=== PATIENT | female | born 1950 | race Caucasian/White ===

== ENCOUNTER 2021-07-07 06:28 | Observation (INO) ==
--- NOTE | 2021-07-03 15:36 | Anesthesiology Consultation ---
Date of Service July 03, 2021 Assessment & Plan (1) Encounter for pre-operative examination: Chart Review Chart Review: Acceptable Risk for Surgery (pending preop Covid testing and DOS labs ) and Patient NOT seen in Pre Admission Testing -No preop labs done- will order CBC with diff, PRP and coags stat AM of surgery Per nursing assessment 07/03/2021, patient denies any recent travel. No known Covid infection in the past 90 days. Patient is fully vaccinated for Covid. Pt did feel ill on 06/18/21- took home Covid test- was negative for Covid. No known Covid positive exposures or current Covid related symptoms. Preop Covid testing 07/03/21= results pending History Surgery Operation Date: 07/07/21 14:20 Proposed Procedures p Right Total Knee Arthroplasty - Jones Ventura DO Height/Weight Height: 5 ft 2 in Weight: 103.419 kg Allergies Allergy/AdvReac Type Severity Reaction Status Date / Time Penicillins Allergy Mild Swelling Verified 07/03/21 10:19 of Lip/Tongue/Throat silver sulfadiazine Allergy Mild Rash Verified 07/03/21 10:19 [From [facility]] Medications Home Medications Medication Instructions Recorded Confirmed Last Taken acetaminophen 650 mg 4 tab PO QAM 08/24/18 07/03/21 Unknown tablet,extended release (Tylenol Arthritis Pain) albuterol sulfate 90 mcg/actuation 2 puff INHALATION Q6H PRN 08/24/18 07/03/21 Unknown aerosol inhaler atorvastatin 40 mg tablet 40 mg PO QPM 08/24/18 07/03/21 Unknown levothyroxine 125 mcg tablet 125 mcg PO QAM 08/24/18 07/03/21 Unknown 3-in-1 Commode #1 ea 12/09/20 04/25/21 Unknown Wheeled Walker #1 ea 12/09/20 04/25/21 Unknown celecoxib 200 mg capsule (Celebrex) 200 mg PO BID 01/08/21 07/03/21 Unknown clobetasol 0.025 % topical cream 1 applic TOPICAL BID PRN 01/08/21 07/03/21 Unknown diclofenac sodium 1 % topical gel 2 g TOPICAL QID PRN 01/08/21 07/03/21 Unknown duloxetine 60 mg capsule,delayed 60 mg PO QPM 01/08/21 07/03/21 Unknown release gabapentin 400 mg capsule 400 mg PO TID 01/08/21 07/03/21 Unknown oxybutynin chloride 5 mg 5 mg PO QAM 01/08/21 07/03/21 Unknown tablet,extended release 24 hr oxycodone 15 mg tablet,crush 15 mg PO Q12H 01/08/21 07/03/21 Unknown resistant,extended release 12 hr (OxyContin) oxycodone 5 mg tablet 5 mg PO Q8H PRN 01/08/21 07/03/21 Unknown ropinirole 1 mg tablet 1 mg PO HS 01/08/21 07/03/21 Unknown tramadol 50 mg tablet 100 mg PO Q6H PRN 01/08/21 07/03/21 Unknown acetaminophen 650 mg 650 - 1,300 mg PO QPM 07/03/21 07/03/21 Unknown tablet,extended release (Tylenol Arthritis Pain) duloxetine 30 mg capsule,delayed 30 mg PO QPM 07/03/21 07/03/21 Unknown release furosemide 40 mg tablet (Lasix) 80 mg PO QAM PRN 07/03/21 07/03/21 Unknown gabapentin 100 mg capsule 100 mg PO TID 07/03/21 07/03/21 Unknown Past Medical History Medical History Anxiety Depression Graves disease S/p radioactive iodine > currently on levothyroxine Hx of deep venous thrombosis RLE (~1.5 years ago), Eliquis x 3 months after event, no definitive etiology, no issues since Hyperlipidemia Kidney stones Hx Morbid obesity with BMI of 40.0-44.9, adult Neuropathy Restless leg syndrome Past Family History Family History Other No family history of adverse response to anesthesia Past Surgical History Surgical History Hx of colonoscopy Hx of lithotripsy Social History Smoking Status: Never smoker Do You Dip or Chew Tobacco: No Hx Alcohol Use: No Hx Substance Use: No substance use type: does not use Testing Electrocardiogram Date: 01/14/21 SB at 55bpm. Minimal voltage criteria for LVH, may be normal variant. Chest X-Ray Date: 01/14/21 FINDINGS: Lung volumes are normal. There is no pneumothorax or pleural effusion. There is mild cardiomegaly without evidence for pulmonary edema. There is a moderate sized hiatal hernia. There is no consolidation to suggest pneumonia. IMPRESSION: No acute cardiopulmonary findings. Mild cardiomegaly. Hiatal hernia.
--- NOTE | 2021-07-07 06:16 | History & Physical Report ---
Date of Service July 07, 2021 Assessment & Plan (1) Osteoarthritis of right knee: We will proceed with a right total knee arthroplasty. Postoperatively she will be started on Xarelto for DVT prophylaxis and kept overnight in the hospital for postop medical management. She will need to discuss postoperative home health or therapy with case management. History of Present Illness Chief Complaint: Advanced osteoarthritis of the right knee. Primary Care Provider: Jimbo Nicolas DO Christelle is a pleasant 70-year-old female who is been doing with chronic increasing right knee pain. X-rays and clinical examination have been diagnostic for advanced osteoarthritis of the right knee. After failing years of conservative treatment, she has elected proceed with a right total knee arthroplasty. Allergies Allergy/AdvReac Type Severity Reaction Status Date / Time Penicillins Allergy Mild Swelling Verified 07/03/21 10:19 of Lip/Tongue/Throat silver sulfadiazine Allergy Mild Rash Verified 07/03/21 10:19 [[facility]] Home Medications Medication Instructions Recorded Confirmed Type acetaminophen 650 mg 4 tab PO QAM 08/24/18 07/03/21 History tablet,extended release (Tylenol Arthritis Pain) albuterol sulfate 90 mcg/actuation 2 puff INHALATION Q6H PRN 08/24/18 07/03/21 History aerosol inhaler atorvastatin 40 mg tablet 40 mg PO QPM 08/24/18 07/03/21 History levothyroxine 125 mcg tablet 125 mcg PO QAM 08/24/18 07/03/21 History 3-in-1 Commode #1 ea 12/09/20 04/25/21 Rx Wheeled Walker #1 ea 12/09/20 04/25/21 Rx celecoxib 200 mg capsule (Celebrex) 200 mg PO BID 01/08/21 07/03/21 History clobetasol 0.025 % topical cream 1 applic TOPICAL BID PRN 01/08/21 07/03/21 History diclofenac sodium 1 % topical gel 2 g TOPICAL QID PRN 01/08/21 07/03/21 History duloxetine 60 mg capsule,delayed 60 mg PO QPM 01/08/21 07/03/21 History release gabapentin 400 mg capsule 400 mg PO TID 01/08/21 07/03/21 History oxybutynin chloride 5 mg 5 mg PO QAM 01/08/21 07/03/21 History tablet,extended release 24 hr oxycodone 15 mg tablet,crush 15 mg PO Q12H 01/08/21 07/03/21 History resistant,extended release 12 hr (OxyContin) oxycodone 5 mg tablet 5 mg PO Q8H PRN 01/08/21 07/03/21 History ropinirole 1 mg tablet 1 mg PO HS 01/08/21 07/03/21 History tramadol 50 mg tablet 100 mg PO Q6H PRN 01/08/21 07/03/21 History acetaminophen 650 mg 650 - 1,300 mg PO QPM 07/03/21 07/03/21 History tablet,extended release (Tylenol Arthritis Pain) duloxetine 30 mg capsule,delayed 30 mg PO QPM 07/03/21 07/03/21 History release furosemide 40 mg tablet (Lasix) 80 mg PO QAM PRN 07/03/21 07/03/21 History gabapentin 100 mg capsule 100 mg PO TID 07/03/21 07/03/21 History Past Med/Surg History Medical History Anxiety Depression Graves disease S/p radioactive iodine > currently on levothyroxine Hx of deep venous thrombosis RLE (~1.5 years ago), Eliquis x 3 months after event, no definitive etiology, no issues since Hyperlipidemia Kidney stones Hx Morbid obesity with BMI of 40.0-44.9, adult Neuropathy Restless leg syndrome Surgical History Hx of colonoscopy Hx of lithotripsy Family History Other No family history of adverse response to anesthesia Social History Smoking Status: Never smoker Second Hand Exposure: No; Hx Alcohol Use: No Hx Substance Use: No Preferred Language: Venezuelan Communication Ability: Effective Craft Recruiter Required: No Beliefs That Will Affect Care: None Current Living Situation: Spouse Feels Safe at Home: Yes Assistive Devices: Cane and Glasses Review of Systems All systems reviewed & are unremarkable except as noted in HPI & below. Physical Exam On physical examination of the right knee, she has a trace effusion. She has range of motion from 5 to 120 degrees. No instability. Tenderness palpation of the distal medial femoral condyle and over the medial joint line. Constitutional WD/WN, vitals as above Eyes PERRL, conjunctivae normal, anicteric sclerae ENMT external ear and nose normal, oropharynx normal Neck trachea midline, no thyromegaly Respiratory normal respiratory effort Cardiovascular RRR, no murmur, no edema Gastrointestinal (Abdomen) normal bowel sounds, soft, nontender, no hepatosplenomegaly Psychiatric A+Ox3, euthymic affect Results & Data Results & Data Laboratory Results . Diagnostic Findings X-rays of the right knee show advanced osteoarthritis with joint space narrowing, osteophyte formation, and [id number] articulation.. PG Care Time/CCT Total # of Minutes Spent Total Time Spent with Patient: Total time spent is greater than 50% in coordination of care (as documented) at patient's floor/unit and/or counseling patient: Coding Level of Care Code None Diagnoses Osteoarthritis of right knee M17.11
[~2021-07-07 06:28] MED LIST: ACETAMINOPHEN 500 MG TAB PO SCH; BUPIVACAINE 0.5 % 5 MG/1 ML PF 10ML VIAL ONE; FAMOTIDINE 20 MG TAB PO SCH; GABAPENTIN 300 MG CAP PO SCH; Ketorolac (*for OR use only*) 30 MG, dexAMETHasone 4 MG, KETAMINE HCL (**OR use only) 1... INFIL SCH; LR 500ML BOLUS, THEN 15ML/HR IV SCH; LR 60ML/HR IV SCH; ROPIVACAINE 0.5% 5 MG/ML 30 ML VIAL ONE; TRANEXAMIC ACID 1,000 MG **IV Intra-op IV SCH; TRANEXAMIC ACID 1,000 MG **IV Pre-op IV SCH; dexAMETHasone 4 MG TAB PO SCH
[2021-07-07] MEDS ORDERED: ceFAZolin 2,000 MG/15 ML IV PUSH IV ONE (06:59)
[2021-07-07] MEDS ORDERED: fentaNYL citrate 100 MCG/2 ML VIAL ONE (07:03)
[2021-07-07] MEDS ORDERED: LIDOCAINE 2% 2 ML VIAL/AMP(20MG/ML) INFIL ONE (07:03)
[2021-07-07] MEDS ORDERED: MIDAZOLAM HCL 1 MG/ML 2ML VIAL ONE (07:03)
[2021-07-07] MEDS ORDERED: PROPOFOL IV EMULSION 10 MG/ML 20 ML VIAL IV ONE (07:03)
[2021-07-07 07:19] LABS: Basophils # (auto) 0.01 K/uL (0-0.2); Basophils % (auto) 0.2 %; Eosinophils # (auto) 0.15 K/uL (0-0.5); Eosinophils % (auto) 2.7 %; Hematocrit (blood only) 40.3 % (37-47); Hemoglobin 13.1 g/dL (12.0-16.0); Lymphocytes # (auto) 1.88 K/uL (1.2-3.4); Lymphocytes % (auto) 34.3 %; Mean Corpuscular Hemoglobin 33.5 pg (25-34); Mean Corpuscular Volume 103.1 fL (80-100); Mean Platelet Volume 9.1 fL (7.4-10.4); Monocytes # (auto) 0.61 K/uL (0.11-0.59); Monocytes % (auto) 11.1 %; Neutrophils # (auto) 2.83 K/uL (1.4-6.5); Neutrophils % (auto) 51.7 %; Platelet Count 222 K/uL (130-400); RDW Coefficient of Variation 14.3 % (11.5-14.5); RDW Standard Deviation 53.4 fL (36.4-46.3); Red Blood Count 3.91 M/uL (4.2-5.4); White Blood Count 5.48 K/uL (4.8-10.8)
[2021-07-07 07:29] LABS: Partial Thromboplastin Time 26.2 Seconds (21.0-31.0); Prothrombin Time 10.8 Seconds (9.0-12.0)
[2021-07-07 07:30] LABS: Mean Corpuscular Hgb Conc 32.5 g/dL (32-36)
[2021-07-07 07:38] LABS: BUN Creatinine Ratio 30.4 (10-20); Calcium 8.8 mg/dl (8.5-10.1); Creatinine Clr Calc Pharmacy 85.5 ml/min; Est GFR (African American) 102.2 ml/min; Est GFR (Non-African American) 88.2 ml/min; Potassium 3.7 mmol/L (3.5-5.1)
[2021-07-07] MEDS ORDERED: ORTHO JOINT ANESTHETIC ONE (08:04)
[2021-07-07] MEDS ORDERED: HYDROmorphone INJ 1 MG/ML SYRINGE IV PRN (08:56)
[2021-07-07] MEDS ORDERED: ePHEDrine sulfate 50 MG/ML AMP IV PRN (08:56)
[2021-07-07] MEDS ORDERED: fentaNYL citrate 100 MCG/2 ML VIAL IV PRN (08:56)
[2021-07-07] MEDS ORDERED: ATROPINE SULFATE 0.1 MG/ML 10ML SYR IV PRN (08:56)
--- NOTE | 2021-07-07 09:44 | Operative Report ---
PG Post Operative Report Pre & Post Diagnosis Operation Date: 07/07/21 08:50 Pre-Op Diagnosis: Degenerative Joint Disease Right Knee Post-Op Diagnosis: Degenerative Joint Disease Right Knee I identified the patient and participated in the time-out.: Yes Procedure Operation Date: 07/07/21 08:50 Actual Procedures p Right Total Knee Arthroplasty(Right) - Jones Ventura DO Surgeon Jones Ventura DO Senior Developer Jones Shelton PAC Estimated Blood Loss 20 Findings Consistent with Post-Op Diagnosis Specimens Right femoral and tibial bone Complications none Disposition Disposition: Recovery Room Indications Christelle is a pleasant 70-year-old female has been doing with chronic worsening right knee pain. X-rays and clinical examination have been diagnostic for advanced osteoarthritis of the right knee. After failing years of conservative treatment, she elected proceed with a right total knee arthroplasty. Description of Procedure Implants used: I used a Kriss Persona total knee arthroplasty system with a size 7 standard PS femur, E tibia with a 30 mm stem extension, 28 oval patella, and a size 12 medial congruent polyethylene bearing. All components were cemented in place with Biomet cement. Christelle arrived [facility] for the above procedure. She was seen in the preoperative holding area and the operative extremity was identified and signed. She was given a preoperative antibiotic, TXA, a spinal anesthetic and an adductor nerve block. She was taken back to the operating room and laid on the table in supine position. She was given basic sedation. The operative knee was then prepped and draped in sterile fashion. A timeout was done, and the patient and the operative extremity was properly identified. A midline incision was made directly over the patella. Dissection was taken down to the extensor mechanism. A subvastus arthrotomy was used. The medial retinaculum was released and the fat pad was mostly excised. The knee was flexed and the ACL, PCL, and meniscus were removed. A drill was sent down the center of the femoral canal followed by an intramedullary violette. Off that violette a distal femoral cutting block was placed. 9 mm was resected off the distal femur at 5 of valgus. A posterior referencing AP sizing guide was then placed on the distal femur. The femur measured to be a size 7. 2 drill holes were placed in 3 of external rotation. A 4-in-1 cutting block was then impacted into place. Anterior, posterior, and chamfer cuts were then made. The proximal tibia was then exposed. An external tibial alignment guide was placed. A tibial cut guide was then anchored in place and the proximal tibia was then resected. The posterior aspect of the knee was then opened up and any additional meniscus fragments and osteophytes were removed. The tibia measured to be a size E. The tibial plate was then placed in the appropriate rotation and the tibia was drilled and punched. Trial components were then placed. I used a size 12 medial congruent polyethylene insert. The knee was brought through a full range of motion and felt to be stable. The peg holes for the femoral component were then drilled. The patella was then everted and 9 mm was resected off the posterior aspect of the patella. The patella measured to be a size 28 oval. 3 peg holes were then drilled. A trial patella was placed. The knee was once again brought through a full range of motion and felt to be stable. Trial components were then removed. The surrounding soft tissues were injected with 100 cc of an orthopedic pain control cocktail. All components were then cemented into place with Biomet cement. The final polyethylene insert was then snapped into place. Once cement was dry the tourniquet was deflated. Hemostasis was obtained. A dilute betadyne lavage was then done for 3 minutes. The joint was then irrigated with normal saline solution. The subvastus arthrotomy was then closed with #1 Vicryl suture. The skin was closed with 2-0 Vicryl, 3-0V lock suture, and ketty. A soft compressive dressing was placed. She was then transferred to a hospital bed and taken to the postanesthesia care unit in stable condition. She tolerated the procedure well. Jones Shelton PA-C, was present for the entire procedure. He was critical for patient positioning, prepping, draping, retraction exposure, wound closure and application of sterile dressing. I attest to the content of the Intraoperative Record and any orders documented therein. Any exceptions are noted below.
--- NOTE | 2021-07-07 10:34 | XRay Report ---
XR knee RT 1 or 2V routine CLINICAL HISTORY: Surgical Post Op. Status post knee replacement COMPARISON STUDY: No previous studies for comparison. TECHNIQUE: 2 right knee views FINDINGS: The patient is status post total knee replacement. The prosthetic components are in anatomi c alignment with no acute abnormality seen. Air is present within the soft tissues from the procedure . Skin ketty are seen anteriorly. IMPRESSION: 1. Status post total knee replacement. ACT 112: Negative or not required by law. Electronically signed by: Natanael Pedroza M.D. 07/07/2021 10:33 AM
--- NOTE | 2021-07-07 13:30 | Anesthesiology Progress Note ---
Date of Service July 07, 2021 Anesthesia Post Procedure Vital Signs Vital Signs: Temp Pulse Pulse Pulse Resp BP Pulse Ox 07/07/21 13:24 36.5 C 56 L 18 153/85 H 98 07/07/21 13:10 53 L 19 137/57 L 98 07/07/21 13:00 36.4 C L 52 L 14 131/66 94 07/07/21 12:50 61 22 142/60 H 96 07/07/21 12:40 54 L 18 128/76 93 07/07/21 12:30 59 L 18 140/64 97 07/07/21 12:20 71 17 155/68 H 98 07/07/21 12:10 65 18 141/59 H 97 07/07/21 12:00 63 17 147/62 H 93 07/07/21 11:50 58 L 17 136/67 96 07/07/21 11:40 57 L 19 137/78 96 07/07/21 11:30 60 16 141/67 H 100 07/07/21 11:20 61 21 141/64 H 97 07/07/21 11:10 59 L 18 146/62 H 96 07/07/21 11:00 66 17 143/69 H 98 07/07/21 10:50 66 18 130/60 96 07/07/21 10:40 65 20 136/64 98 07/07/21 10:30 72 19 136/71 94 07/07/21 10:20 75 16 139/66 97 07/07/21 10:11 36.0 C L 77 16 124/66 94 07/07/21 07:44 37 C 76 18 169/81 H 97 Pain Intensity Right Knee: Pain Intensity: 8 Transfer of Care Handoff Completed per policy Notes Mental Status: alert / awake / arousable and participated in evaluation Patient Amnestic to Procedure: Yes Nausea / Vomiting: adequately controlled Pain: adequately controlled Airway Patency, RR, SpO2: stable & adequate BP & HR: stable & adequate Hydration State: stable & adequate Anesthetic Complications: no major complications apparent
[2021-07-07] MEDS ORDERED: bisacodyL 10 MG SUPP PR PRN (15:47)
[2021-07-07] MEDS ORDERED: DICLOFENAC SOD 1% GEL 100 GM TUBE EXT PRN (15:47)
[2021-07-07] MEDS ORDERED: MAGNESIUM HYDROXIDE SUSP 30 ML UDC PO PRN (15:47)
[2021-07-07] MEDS ORDERED: ONDANSETRON INJ 2 MG/ML 2 ML VIAL IV PRN (15:47)
[2021-07-07] MEDS ORDERED: SODIUM CHLORIDE 0.9% 1000ML 1,000 ML IV SCH (15:47)
[2021-07-07] MEDS ORDERED: ALBUTEROL HFA 8 GM INHALER INH PRN (15:47)
[2021-07-07] MEDS ORDERED: METOCLOPRAMIDE HCL INJ 5 MG/ML 2 ML VIAL IV PRN (15:47)
[2021-07-07] MEDS ORDERED: NALOXONE HCL 0.4 MG/1 ML VIAL/CARP IV PRN (15:47)
[2021-07-07] MEDS ORDERED: HYDROmorphone INJ 0.5 MG/0.5 ML SYR IV PRN (15:47)
[2021-07-07] MEDS ORDERED: FUROSEMIDE 80 MG TAB PO PRN (15:47)
[2021-07-07] MEDS ORDERED: CLOBETASOL 0.025% TOP PRN (15:47)
[2021-07-07] MEDS: ceFAZolin 2000MG 2,000 MG/15 ML SYR IV SCH ×2 (17:35→23:57)
[2021-07-07] MEDS: KETOROLAC TROMETHAMINE 15 MG/ML VIAL IV SCH ×2 (17:35→23:56)
[2021-07-07] MEDS: GABAPENTIN 100 MG CAP PO SCH ×2 (17:36→21:35)
[2021-07-07] MEDS: ACETAMINOPHEN 500 MG TAB PO SCH ×2 (17:36→21:33)
[2021-07-07] MEDS: GABAPENTIN 400 MG CAP PO SCH ×2 (17:36→21:34)
[2021-07-07] MEDS: oxyCODONE HCL IR 5 MG TAB (IMMEDIATE RELEASE) PO PRN (20:13)
[2021-07-07] MEDS ORDERED: DULoxetine HCL 60 MG CAP PO SCH (21:00)
[2021-07-07] MEDS ORDERED: DULoxetine HCL 30 MG CAP PO SCH (21:00)
[2021-07-07] MEDS ORDERED: rOPINIRole HCL 1 MG TABLET PO SCH (21:00)
[2021-07-07] MEDS ORDERED: SENNA 8.6 MG TAB PO SCH (21:00)
[2021-07-07] MEDS ORDERED: ATORVASTATIN 40 MG TAB PO SCH (21:00)
[2021-07-07] MEDS: DOCUSATE SODIUM 100 MG CAP PO SCH (21:32)
[2021-07-08] MEDS: oxyCODONE HCL IR 5 MG TAB (IMMEDIATE RELEASE) PO PRN ×3 (05:17→15:17)
[2021-07-08] MEDS: KETOROLAC TROMETHAMINE 15 MG/ML VIAL IV SCH ×2 (05:17→13:34)
[2021-07-08] MEDS: ACETAMINOPHEN 500 MG TAB PO SCH ×2 (05:18→13:33)
[2021-07-08] MEDS ORDERED: LEVOTHYROXINE SODIUM 125 MCG TABLET PO SCH (06:30)
--- NOTE | 2021-07-08 06:57 | Orthopedic Progress Note ---
Date of Service July 08, 2021 Assessment & Plan (1) Status post right knee replacement: Overall she is doing very well. She denies any much pain in the right knee. She is on Xarelto for DVT prophylaxis due to a prior history of DVT. She will be seen by physical therapy today for ambulation and range of motion exercises. She can be discharged home later today. She has been complaining about some pain and instability of her left knee. She feels she needs a brace with her left knee. I advised her to first see how she does at home and if she has continued pain instability of her left knee then she can come by our office anytime for possible injection or knee brace. Otherwise, she will follow-up with orthopedics in 2 weeks. Meri Bourgeois was seen and examined at bedside this morning. Overall she is doing very well and happy with her progress. She denies any much pain in her right knee. She has been ambulating some with the nursing staff. She has no complaints. Review of Systems All systems reviewed & are unremarkable except as noted in HPI & below. Physical Exam On physical examination of her right knee, the dressing is clean and dry. Her leg is out full extension. She has active dorsiflexion plantarflexion of her right ankle. Results & Data Results & Data Laboratory Results . Diagnostic Findings . PG Care Time/CCT Total # of Minutes Spent Total Time Spent with Patient: Total time spent is greater than 50% in coordination of care (as documented) at patient's floor/unit and/or counseling patient: Coding Level of Care Code 23532 Post Operative Follow-Up Diagnoses Status post right knee replacement Z96.651
--- NOTE | 2021-07-08 06:59 | Discharge Summary ---
Date of Service July 08, 2021 Admission HPI (Per Admitting) Christelle is a pleasant 70-year-old female who is been doing with chronic increasing right knee pain. X-rays and clinical examination have been diagnostic for advanced osteoarthritis of the right knee. After failing years of conservative treatment, she has elected proceed with a right total knee arthroplasty. Admission Exam (Per Admitting) On physical examination of the right knee, she has a trace effusion. She has range of motion from 5 to 120 degrees. No instability. Tenderness palpation of the distal medial femoral condyle and over the medial joint line. Principal Diagnosis Same as "Discharge Diagnosis" noted below under Discharge Instructions. Discharge Exam On physical examination of her right knee, the dressing is clean and dry. Her leg is out full extension. She has active dorsiflexion plantarflexion of her right ankle. Discharge Data Procedures Performed Operation Date: 07/07/21 08:50 Actual Procedures p Right Total Knee Arthroplasty(Right) - Jones Ventura DO Ordered Studies 07/07/21 05:00 US - OR guided needle placemen Routine Hospital Course (1) Status post right knee replacement: On July 07, 2021 Christelle arrived at [facility] and underwent a right knee replacement without complication. She had a spinal anesthetic. Postoperatively she was started on Xarelto for DVT prophylaxis and transferred to the general orthopedic floors. Her hospital course was uneventful. On postop day #1 her vital signs were stable and her pain was well controlled. She was able to participate well with physical therapy doing ambulation and range of motion exercises. She was then discharged home. She will follow-up with orthopedics in 2 weeks. PG Care Time/CCT Total # of Minutes Spent Total Time Spent with Patient: Total time spent is greater than 50% in coordination of care (as documented) at patient's floor/unit and/or counseling patient: Discharge Plan Discharge Items Patient Disposition: Home - Home Health Services Reason For Visit: Degenerative Joint Disease Right Knee Discharge Diagnosis: Status post right knee replacement Activity: Per Instructions section Non-emergency contact: Surgeon Call non-emergency contact if: your wound has increased redness and your wound has increased drainage Follow-up/Referrals: Jimbo Nicolas DO [Primary Care Provider] - Diet: Regular Addtl Attending Provider Instructions: Activity and Therapy Recommendations: * If you are using [facility] then therapy will be provided at your home until they feel you have accomplished all of your goals. * If you are using [facility] then Physical Therapy will be provided until they feel you are ready to start Outpatient Physical Therapy. * If you are not using home therapy then Outpatient Physical Therapy should start about 3-5 days from your day of surgery. Therapy will last about 6-10 weeks * It is important not to put a pillow under your knee when you are relaxing or sleeping. It is just as important to make sure you are getting your knee perfectly straight as it is to regain your knee bend. * You were shown a series of exercises in the hospital. Do these exercises three times each day including the exercises you were shown in physical therapy. * Get up and walk several times each day. For the first four weeks, try not to stand or walk for more than one hour at a time. If you do stand or walk for more than one hour, you will not hurt anything, but your leg will likely swell. * As you feel comfortable, you may change from the walker or crutches to a cane and then to independent walking. Medications: * Narcotic You will likely be sent home from the hospital with a prescription for the narcotic pain medication that worked best throughout your stay. * Aspirin Most patients will be required to take Aspirin 81mg twice a day for 6 weeks after surgery. This is obtained [id number] and a prescription is not necessary. * Other medications may be prescribed for specific circumstances. If you have any questions, please call the office at . * Resume previous home medications unless otherwise instructed TEDs/Elastic Stockings: The white elastic stockings help limit swelling and prevent blood clots from forming in your legs.~ The more you wear them, the more they work. Wear them for six weeks. Dressing Care: The dressing can be changed after physical therapy on postop day #1. Daily dry dressing changes for a few days, especially if the incision is still draining some. If the incision is not draining then you may leave the ketty open to air. If there is a little bit of drainage or if the ketty are getting stuck on your clothing then cover the incision with a dry dressing. The ketty will be removed at your 2 week follow-up appointment. Showering: You may shower 5 days from the day of surgery as long as the incision is no longer draining. You may shower with the ketty exposed. Let soapy water run over the ketty and pat them dry. Do not scrub or soak the incision. Things To Watch For: * Drainage from the incision site that occurs more than one week after your surgery. * Increased redness at the incision site. * Fever above 102 degrees Fahrenheit. * Unusual chest pain or shortness of breath. * Call [facility] at with any of the above problems Follow-Up Visit: Follow-up with Dr. Ventura's PA (Jones Shelton) 2-3 weeks after your day of surgery. He will remove your ketty and answer any questions. If you have any additional questions or concerns, Dr Ventura is usually in the office at the same time and will be available An appointment was probably scheduled when you signed-up for surgery in the office. If you have any questions call Office Instructions: More detailed instructions as well as Frequently Asked Questions were provided in a folder by our office when you signed-up for surgery. Please review these instructions when you get home. If you have any further questions or concerns, please feel free to call the office at [phone] Pending Studies at Discharge: No Stand-Alone Forms: My [facility], Smoking Cessation Medications and DC Order Prescriptions: New Xarelto 10 mg Tablet 10 mg PO DAILY Qty: 10 RF: 0 Continued gabapentin 100 mg capsule 100 mg PO TID RF: 0 duloxetine 30 mg capsule,delayed release(DR/EC) 30 mg PO QPM RF: 0 furosemide [Lasix] 40 mg tablet 80 mg PO QAM PRN (Reason: Edema) RF: 0 (DME) 3-in-1 Commode Misc See Rx Instructions .MEDSUPPLY Qty: 1 RF: 0 (DME) Wheeled Walker Misc See Rx Instructions .MEDSUPPLY Qty: 1 RF: 0 atorvastatin 40 mg tablet 40 mg PO QPM RF: 0 acetaminophen [Tylenol Arthritis Pain] 650 mg Tablet Extended Release 4 tab PO QAM RF: 0 levothyroxine 125 mcg tablet 125 mcg PO QAM RF: 0 albuterol sulfate 90 mcg/actuation Hfa Aerosol Inhaler 2 puff INHALATION Q6H PRN (Reason: Shortness Of Breath Or Wheezing) RF: 0 celecoxib [Celebrex] 200 mg Capsule 200 mg PO BID RF: 0 ropinirole 1 mg Tablet 1 mg PO HS RF: 0 gabapentin 400 mg Capsule 400 mg PO TID RF: 0 tramadol 50 mg Tablet 100 mg PO Q6H PRN (Reason: Pain) RF: 0 oxybutynin chloride 5 mg Tablet Extended Release 24hr 5 mg PO QAM RF: 0 duloxetine 60 mg Capsule,Delayed Release(Dr/Ec) 60 mg PO QPM RF: 0 oxycodone [OxyContin] 15 mg Tablet,Oral Only,Ext.Rel.12 Hr 15 mg PO Q12H RF: 0 clobetasol 0.025 % Cream 1 applic TOPICAL BID PRN (Reason: Rash) RF: 0 diclofenac sodium 1 % Gel 2 g TOPICAL QID PRN (Reason: Pain) RF: 0 acetaminophen [Tylenol Arthritis Pain] 650 mg Tablet Extended Release 650 - 1,300 mg PO QPM RF: 0 Changed oxycodone 5 mg Tablet 5 mg PO Q4H PRN (Reason: Pain) Qty: 60 RF: 0 Discharge Orders: Discharge Order (Routine); Ordered 07/08/21 Ordered By: Jones Ventura Admission Data Admit Date/Time: 07/07/21 10:16 Attending Provider: Jones Ventura Admit Provider: Jones Ventura Primary Care Provider: Jimbo Nicolas
[2021-07-08] MEDS ORDERED: dexAMETHasone 4 MG TAB PO SCH (08:00)
[2021-07-08] MEDS: GABAPENTIN 100 MG CAP PO SCH ×2 (08:23→14:05)
[2021-07-08] MEDS: GABAPENTIN 400 MG CAP PO SCH ×2 (08:24→14:05)
[2021-07-08] MEDS: DOCUSATE SODIUM 100 MG CAP PO SCH (08:24)
[2021-07-08] MEDS ORDERED: RIVAROXABAN 10 MG TABLET PO SCH (09:00)
[2021-07-08] MEDS ORDERED: OXYBUTYNIN CHLORIDE XL 5 MG TABCR PO SCH (09:00)
[2021-07-08] MEDS ORDERED: MULTIVITAMIN TAB PO SCH (09:00)
--- NOTE | 2021-07-08 13:38 | Ultrasound Report ---
US venous doppler LE RT CLINICAL HISTORY: right calf pain COMPARISON: None available at the time of this dictation. TECHNIQUE: Right lower extremity real-time compression venous ultrasound with Color Doppler imaging. Utilizing real-time ultrasonic imaging multiple real time high-resolution ultrasonic images with comp ression and noncompression maneuvers of the deep venous system in addition to color doppler imaging w ere performed from the common femoral vein through the proximal calf veins. FINDINGS: Currently there is normal compressibility of the deep venous system from the common femoral vein thro ugh the proximal calf veins. No current evidence of acute thrombosis is identified. However, there is nonocclusive thrombus seen within the popliteal vein which has a chronic appearance . Small vessels are seen at this site. Impression: No definite evidence of acute deep venous thrombus. Findings characteristic of chronic DVT is seen in volving the popliteal vein. ACT 112: Negative or not required by law. Electronically signed by: Natanael Pedroza M.D. 07/08/2021 1:36 PM
== END 2021-07-08 16:24 | disposition home health service (06) ==
LOC: 3W 06:28 → ASU 06:28

== ENCOUNTER 2021-09-01 08:10 | Observation (INO) ==
--- NOTE | 2021-08-29 09:27 | Anesthesiology Consultation ---
Date of Service August 29, 2021 Assessment & Plan (1) Encounter for pre-operative examination: Chart Review Chart Review: Acceptable Risk for Surgery (pending surgeon/anesthesia evaluation DOS ) and Patient NOT seen in Pre Admission Testing -Discussed anemia (worsened from July 03/2022 but had recent TKA 07/07/21), chronic DVT findings on 07/08/21 right LE u/s (pt on Xarelto x 10 days post op from 07/07/21 right TKA)- surgery being done on left side, and Dr. Ely made aware that Dr Ventura will be evaluating pt's left ankle infection DOS and deciding if patient can proceed with left TKA or not DOS- will leave to surgeon's discretion. Pt can proceed as scheduled. Per nursing assessment 08/29/2021, patient denies any recent travel. Pt had presumed Covid infection Jun 2021 after exposure to grandson who was Covid positive. pt had mild upset stomach and loss of appetite- never tested at that time. Has had three negative Covid tests since Jun 2021. No known recent Covid positive exposures or current Covid related symptoms. Pt is fully vaccinated for Covid. Preop Covid testing 08/27/21= negative. Covid test will be 5 days old by DOS- will order David test DOS. Pt is also being admitted- David needed DOS- possible pt cohorting. Right TKA 07/07/21= Done under SAB at L3-4 with 2 attempts. No anesthesia issues noted per anesthesia record History Surgery Operation Date: 09/01/21 08:50 Proposed Procedures p Left Total Knee Arthroplasty - Jones Ventura, Height/Weight Height: 5 ft 3.5 in Weight: 104.326 kg Allergies Allergy/AdvReac Type Severity Reaction Status Date / Time Penicillins Allergy Mild Swelling Verified 08/29/21 07:42 of Lip/Tongue/Throat silver sulfadiazine Allergy Mild Rash Verified 08/29/21 07:42 [From Silvadene] Medications Home Medications Medication Instructions Recorded Confirmed Last Taken acetaminophen 650 mg 4 tab PO QAM 08/24/18 08/29/21 07/07/21 03:00 tablet,extended release (Tylenol Arthritis Pain) albuterol sulfate 90 mcg/actuation 2 puff INHALATION Q6H PRN 08/24/18 08/29/21 Unknown aerosol inhaler atorvastatin 40 mg tablet 40 mg PO QPM 08/24/18 08/29/21 07/06/21 22:00 levothyroxine 125 mcg tablet 125 mcg PO QAM 08/24/18 08/29/21 07/06/21 09:15 3-in-1 Commode #1 ea 12/09/20 08/29/21 Unknown Wheeled Walker #1 ea 12/09/20 08/29/21 Unknown celecoxib 200 mg capsule (Celebrex) 200 mg PO BID 01/08/21 08/29/21 07/01/21 clobetasol 0.025 % topical cream 1 applic TOPICAL BID PRN 01/08/21 08/29/21 Unknown diclofenac sodium 1 % topical gel 2 g TOPICAL QID PRN 01/08/21 08/29/21 Unknown duloxetine 60 mg capsule,delayed 60 mg PO QPM 01/08/21 08/29/21 07/06/21 22:00 release gabapentin 400 mg capsule 400 mg PO TID 01/08/21 08/29/21 07/07/21 03:00 oxybutynin chloride 5 mg 5 mg PO QAM 01/08/21 08/29/21 07/07/21 03:00 tablet,extended release 24 hr oxycodone 15 mg tablet,crush 15 mg PO Q12H 01/08/21 08/29/21 07/07/21 03:00 resistant,extended release 12 hr (OxyContin) ropinirole 1 mg tablet 1 mg PO HS 01/08/21 08/29/21 07/06/21 22:00 tramadol 50 mg tablet 100 mg PO Q6H PRN 01/08/21 08/29/21 07/06/21 23:55 acetaminophen 650 mg 650 - 1,300 mg PO QPM 07/03/21 08/29/21 07/06/21 22:00 tablet,extended release (Tylenol Arthritis Pain) duloxetine 30 mg capsule,delayed 30 mg PO QPM 07/03/21 08/29/21 07/06/21 22:00 release furosemide 40 mg tablet (Lasix) 80 mg PO QAM PRN 07/03/21 08/29/21 07/03/21 gabapentin 100 mg capsule 100 mg PO TID 07/03/21 08/29/21 07/07/21 03:00 oxycodone 5 mg tablet 5 mg PO Q4H PRN #60 tab 07/08/21 08/29/21 Unknown rivaroxaban 10 mg tablet (Xarelto) 10 mg PO DAILY #10 tab 07/08/21 08/29/21 Unknown aspirin 81 mg tablet,delayed 81 mg PO BID 08/29/21 08/29/21 Unknown release doxycycline hyclate 100 mg capsule 100 mg PO BID 08/29/21 08/29/21 Unknown mupirocin 2 % topical ointment 1 applic TOPICAL BID 08/29/21 08/29/21 Unknown Past Medical History Medical History Anxiety Depression Graves disease S/p radioactive iodine > currently on levothyroxine History of COVID-21 Jun 2021, very mild, didn't take actual test, had been exposed to grandson who had covid. Pt then had symptoms. No further issues Hx of bronchitis Inhaler was prescribed for this, no asthma or copd dx Hx of deep venous thrombosis RLE (~1.5 years ago), Eliquis x 3 months after event, no definitive etiology, no issues since Hyperlipidemia Kidney stones Hx Morbid obesity with BMI of 40.0-44.9, adult Neuropathy Restless leg syndrome Staphylococcus infection Present in left ankle > on doxycycline at present > per pt, Dr. Ventura is aware, will assess DOS to make sure ok to proceed with surgery on 09/01/21 Past Family History Family History Other No family history of adverse response to anesthesia Past Surgical History Surgical History History of total right knee replacement Hx of colonoscopy Hx of lithotripsy [place] teeth extracted Social History Smoking Status: Never smoker Do You Dip or Chew Tobacco: No Hx Alcohol Use: No Hx Substance Use: No substance use type: does not use Lab Results Anesthesia Preop Results Results Anesthesia Widget: WBC 5.32 K/uL (4.8-10.8) 08/27/21 Hgb 10.9 g/dL (12.0-16.0) L 08/27/21 Hct 34.7 % (37-47) L 08/27/21 Plt 358 K/uL (130-400) 08/27/21 Na 138 mmol/L (136-145) 08/27/21 K 3.9 mmol/L (3.5-5.1) 08/27/21 Cl 100 mmol/L (98-107) 08/27/21 CO2 34 mmol/L (21-32) H 08/27/21 BUN 14 mg/dl (6-23) 08/27/21 Creat 0.68 mg/dl (0.6-1.2) 08/27/21 Glucose Level 84 mg/dl (70-99(Fasting)) 08/27/21 PT 11.2 Seconds (9.0-12.0) 08/27/21 PTT 28.2 Seconds (21.0-31.0) 08/27/21 INR 1.1 (0.9-1.1) 08/27/21 Blood Type A Negative 08/27/21 Antibody Screen NEGATIVE 08/27/21 Testing Laboratory Results Anemia noted with preop labs (did have right TKA on 07/07/21) Electrocardiogram Date: 01/14/21 SB at 55bpm. Minimal voltage criteria for LVH, may be normal variant. Chest X-Ray Date: 01/14/21 FINDINGS: Lung volumes are normal. There is no pneumothorax or pleural effusion. There is mild cardiomegaly without evidence for pulmonary edema. There is a moderate sized hiatal hernia. There is no consolidation to suggest pneumonia. IMPRESSION: No acute cardiopulmonary findings. Mild cardiomegaly. Hiatal hernia. Other Testing Right LE Venous Doppler 07/08/21= No definite evidence of acute deep venous thrombus. Findings characteristic of chronic DVT is seen involving the popliteal vein.
[~2021-09-01 08:10] MED LIST changes: -LR 60ML/HR IV SCH; +ceFAZolin 2000MG 2,000 MG/15 ML SYR IV SCH
[2021-09-01] MEDS ORDERED: Nursing to Pharmacy Communication SCH (09:00)
[2021-09-01] MEDS ORDERED: ONDANSETRON INJ 2 MG/ML 2 ML VIAL IV PRN ×2 (10:13→15:22)
[2021-09-01] MEDS ORDERED: fentaNYL citrate 100 MCG/2 ML VIAL IV PRN (10:13)
[2021-09-01] MEDS ORDERED: ePHEDrine sulfate 50 MG/ML AMP IV PRN (10:13)
[2021-09-01] MEDS ORDERED: ATROPINE SULFATE 0.1 MG/ML 10ML SYR IV PRN (10:13)
[2021-09-01] MEDS ORDERED: fentaNYL citrate 100 MCG/2 ML VIAL ONE (10:16)
[2021-09-01] MEDS ORDERED: MIDAZOLAM HCL 1 MG/ML 2ML VIAL ONE (10:16)
[2021-09-01] MEDS ORDERED: PROPOFOL IV EMULSION 10 MG/ML 20 ML VIAL IV ONE ×4 (10:46→11:51)
--- NOTE | 2021-09-01 11:00 | History & Physical Bridge Note ---
Date of Service September 01, 2021 History & Physical Bridge Note I have examined the patient, reviewed the History & Physical and in the interval since the performance of the History & Physical I have noted the following changes of clinical significance: Christelle has very small ulcerations around her left ankle. These have been chronic. I do not see any gross signs of infection. She also has skin discoloration around her left ankle. This is also chronic. Skin quality around the left knee looks good. I discussed with her the possible increased risk of infection and she understands the risk and would still like to proceed.
[2021-09-01] MEDS ORDERED: ORTHO JOINT ANESTHETIC ONE (11:11)
--- NOTE | 2021-09-01 13:22 | Operative Report ---
PG Post Operative Report Pre & Post Diagnosis Operation Date: 09/01/21 10:40 Pre-Op Diagnosis: degenerative joint disease, left knee Post-Op Diagnosis: degenerative joint disease, left knee I identified the patient and participated in the time-out.: Yes Procedure Operation Date: 09/01/21 10:40 Actual Procedures p Left Total Knee Arthroplasty(Left) - Jones Ventura DO Surgeon Jones Ventura DO Client Portfolio Manager Jones Shelton PAC Estimated Blood Loss 20 Findings Consistent with Post-Op Diagnosis Specimens Left femoral and tibial bone Complications none Disposition Disposition: Recovery Room Indications Christelle is a pleasant 70-year-old female who is been doing chronic increasing left knee pain. X-rays and clinical examination are diagnostic for advanced arthritis of the left knee. After failing conservative treatment, she elected proceed with a left total knee arthroplasty. Description of Procedure Implants used: I used a Kriss Persona total knee arthroplasty system with a size 7 standard PS femur, D tibia with a 30 mm stem extension, 31 oval patella, and a size 10 CPS polyethylene bearing. All components were cemented in place with Biomet cement. Christelle arrived [facility] for the above procedure. She was seen in the preoperative holding area and the operative extremity was identified and signed. She was given a preoperative antibiotic, TXA, a spinal anesthetic and an adductor nerve block. She was taken back to the operating room and laid on the table in supine position. She was given basic sedation. The operative knee was then prepped and draped in sterile fashion. A timeout was done, and the patient and the operative extremity was properly identified. A midline incision was made directly over the patella. Dissection was taken down to the extensor mechanism. A subvastus arthrotomy was used. The medial retinaculum was released and the fat pad was mostly excised. The knee was flexed and the ACL, PCL, and meniscus were removed. A drill was sent down the center of the femoral canal followed by an intramedullary violette. Off that violette a distal femoral cutting block was placed. 9 mm was resected off the distal femur at 5 of valgus. A posterior referencing AP sizing guide was then placed on the distal femur. The femur measured to be a size 7. 2 drill holes were placed in 3 of external rotation. A 4-in-1 cutting block was then impacted into place. Anterior, posterior, and chamfer cuts were then made. The proximal tibia was then exposed. An external tibial alignment guide was placed. A tibial cut guide was then anchored in place and the proximal tibia was then resected. The posterior aspect of the knee was then opened up and any additional meniscus fragments and osteophytes were removed. The tibia measured to be a size D. The tibial plate was then placed in the appropriate rotation and the tibia was drilled and punched. Trial components were then placed. I used a size 10 CPS polyethylene insert. The knee was br ought through a full range of motion and felt to be stable. The peg holes for the femoral component were then drilled. The patella was then everted and 9 mm was resected off the posterior aspect of the patella. The patella measured to be a size 31 oval. 3 peg holes were then drilled. A trial patella was placed. The knee was once again brought through a full range of motion and felt to be stable. Trial components were then removed. The surrounding soft tissues were injected with 100 cc of an orthopedic pain control cocktail. All components were then cemented into place with Biomet cement. The final polyethylene insert was then snapped into place. Once cement was dry the tourniquet was deflated. Hemostasis was obtained. A dilute betadyne lavage was then done for 3 minutes. The joint was then irrigated with normal saline solution. The subvastus arthrotomy was then closed with #1 Vicryl suture. The skin was closed with 2-0 Vicryl, 3-0V lock suture, and ketty. A soft compressive dressing was placed. She was then transferred to a hospital bed and taken to the postanesthesia care unit in stable condition. She tolerated the procedure well. Jones Shelton PA-C, was present for the entire procedure. He was critical for patient positioning, prepping, draping, retraction exposure, wound closure and application of sterile dressing. I attest to the content of the Intraoperative Record and any orders documented therein. Any exceptions are noted below.
--- NOTE | 2021-09-01 13:53 | XRay Report ---
LEFT KNEE 2 VIEWS History: Left total knee arthroplasty. Degenerative arthritis. Postop. FINDINGS: The patient is status post a left total knee arthroplasty. The hardware is intact. No fract ure or dislocation. Skin ketty are in place. IMPRESSION: Left total knee arthroplasty. No evidence for hardware complication. ACT 112: Negative or not required by law. Electronically signed by: Ehsan Last M.D. 09/01/2021 1:52 PM
--- NOTE | 2021-09-01 15:06 | Anesthesiology Progress Note ---
Date of Service September 01, 2021 Anesthesia Post Procedure Vital Signs Vital Signs: Temp Pulse Pulse Resp BP BP Pulse Ox 09/01/21 14:55 97.5 F L 70 22 139/68 96 09/01/21 14:45 76 20 134/71 96 09/01/21 14:35 55 L 18 143/62 H 95 09/01/21 14:25 55 L 20 139/58 L 93 09/01/21 14:15 60 20 140/65 98 09/01/21 14:05 54 L 18 145/61 H 100 09/01/21 13:55 67 20 143/72 H 97 09/01/21 13:45 74 18 153/70 H 100 09/01/21 13:35 79 16 124/80 97 09/01/21 13:28 97.3 F L 81 18 127/75 96 09/01/21 08:49 98.4 F 76 20 160/61 H 97 Transfer of Care Handoff Completed per policy Notes Mental Status: alert / awake / arousable and participated in evaluation Patient Amnestic to Procedure: Yes Nausea / Vomiting: adequately controlled Pain: adequately controlled Airway Patency, RR, SpO2: stable & adequate BP & HR: stable & adequate Hydration State: stable & adequate Neuraxial Anesthesia: was administered and sensory block is resolving Anesthetic Complications: no major complications apparent and Pt Satisfied with anesthetic care
[2021-09-01] MEDS ORDERED: bisacodyL 10 MG SUPP PR PRN (15:22)
[2021-09-01] MEDS ORDERED: CLOBETASOL 0.025% TOP PRN (15:22)
[2021-09-01] MEDS ORDERED: FUROSEMIDE 80 MG TAB PO PRN (15:22)
[2021-09-01] MEDS ORDERED: METOCLOPRAMIDE HCL INJ 5 MG/ML 2 ML VIAL IV PRN (15:22)
[2021-09-01] MEDS ORDERED: NALOXONE HCL 0.4 MG/1 ML VIAL/CARP IV PRN (15:22)
[2021-09-01] MEDS ORDERED: HYDROmorphone INJ 0.5 MG/0.5 ML SYR IV PRN (15:22)
[2021-09-01] MEDS ORDERED: DICLOFENAC SOD 1% GEL 100 GM TUBE EXT PRN (15:22)
[2021-09-01] MEDS ORDERED: MAGNESIUM HYDROXIDE SUSP 30 ML UDC PO PRN (15:22)
[2021-09-01] MEDS ORDERED: ALBUTEROL HFA 8 GM INHALER INH PRN (15:22)
[2021-09-01] MEDS: SODIUM CHLORIDE 0.9% 1000ML 1,000 ML IV SCH (17:15)
[2021-09-01] MEDS: GABAPENTIN 400 MG CAP PO SCH ×2 (17:15→20:16)
[2021-09-01] MEDS: ACETAMINOPHEN 500 MG TAB PO SCH ×2 (17:16→21:42)
[2021-09-01] MEDS: GABAPENTIN 100 MG CAP PO SCH ×2 (17:17→20:16)
[2021-09-01] MEDS: KETOROLAC TROMETHAMINE 15 MG/ML VIAL IV SCH ×2 (17:21→23:23)
[2021-09-01] MEDS: oxyCODONE HCL IR 5 MG TAB (IMMEDIATE RELEASE) PO PRN (19:50)
[2021-09-01] MEDS: ceFAZolin 2000MG 2,000 MG/15 ML SYR IV SCH (19:51)
[2021-09-01] MEDS: DOXYCYCLINE HYCLATE 100 MG CAP PO SCH (20:15)
[2021-09-01] MEDS: MUPIROCIN 2% OINT 22 GM TUBE TOP SCH (20:15)
[2021-09-01] MEDS: DOCUSATE SODIUM 100 MG CAP PO SCH (20:15)
[2021-09-01] MEDS ORDERED: DULoxetine HCL 60 MG CAP PO SCH (21:00)
[2021-09-01] MEDS ORDERED: SENNA 8.6 MG TAB PO SCH (21:00)
[2021-09-01] MEDS ORDERED: rOPINIRole HCL 1 MG TABLET PO SCH (21:00)
[2021-09-01] MEDS ORDERED: ATORVASTATIN 40 MG TAB PO SCH (21:00)
[2021-09-01] MEDS ORDERED: DULoxetine HCL 30 MG CAP PO SCH (21:00)
[2021-09-02] MEDS: oxyCODONE HCL IR 5 MG TAB (IMMEDIATE RELEASE) PO PRN ×4 (00:14→14:45)
[2021-09-02] MEDS: ceFAZolin 2000MG 2,000 MG/15 ML SYR IV SCH (02:52)
[2021-09-02] MEDS: SODIUM CHLORIDE 0.9% 1000ML 1,000 ML IV SCH (03:02)
[2021-09-02] MEDS: ACETAMINOPHEN 500 MG TAB PO SCH ×2 (05:41→13:23)
[2021-09-02] MEDS: KETOROLAC TROMETHAMINE 15 MG/ML VIAL IV SCH ×2 (05:42→11:46)
[2021-09-02] MEDS ORDERED: LEVOTHYROXINE SODIUM 125 MCG TABLET PO SCH (06:30)
--- NOTE | 2021-09-02 06:46 | Orthopedic Progress Note ---
Date of Service September 02, 2021 Assessment & Plan (1) Status post left knee replacement: Overall she is doing fairly well. She is having much pain in the left knee. She will be seen by physical therapy today for ambulation and range of motion exercises. She is on Xarelto for DVT prophylaxis. She can be discharged home later today. She will follow-up with orthopedics in 2 weeks. Meri Bourgeois was seen and examined at bedside this morning. Overall she is doing fairly well. She is not having much pain in the left knee. She has been up and ambulating to the bathroom. She has no complaints. Review of Systems All systems reviewed & are unremarkable except as noted in HPI & below. Physical Exam On physical examination of the left knee, the dressing is clean and dry. She has active dorsiflexion plantarflexion of her left ankle. Results & Data Results & Data Laboratory Results . Diagnostic Findings Postoperative x-rays of the left knee show the prosthesis to be in anatomic alignment without any evidence of fracture, screws, or loosening. PG Care Time/CCT Total # of Minutes Spent Total Time Spent with Patient: Total time spent is greater than 50% in coordination of care (as documented) at patient's floor/unit and/or counseling patient: Coding Level of Care Code 79091 Post Operative Follow-Up Diagnoses Status post left knee replacement Z96.652
--- NOTE | 2021-09-02 06:47 | Discharge Summary ---
Date of Service September 02, 2021 Principal Diagnosis Same as "Discharge Diagnosis" noted below under Discharge Instructions. Discharge Exam On physical examination of the left knee, the dressing is clean and dry. She has active dorsiflexion plantarflexion of her left ankle. Discharge Data Procedures Performed Operation Date: 09/01/21 10:40 Actual Procedures p Left Total Knee Arthroplasty(Left) - Jones Ventura DO Ordered Studies 09/01/21 05:00 US - OR guided needle placemen Routine Hospital Course (1) Status post left knee replacement: On September 01, 2021 Christelle arrived at [facility] and underwent a left knee replaced without complication. Postoperatively she was started on Xarelto for DVT prophylaxis and transferred to the general orthopedic floors. Her hospital course was uneventful. On postop day #1, her vital signs were stable and her pain was well controlled. She was able to participate well with physical therapy doing ambulation and range of motion exercises. She was then discharged home. She will follow-up with orthopedics in 2 weeks. PG Care Time/CCT Total # of Minutes Spent Total Time Spent with Patient: Total time spent is greater than 50% in coordination of care (as documented) at patient's floor/unit and/or counseling patient: Discharge Plan Discharge Items Patient Disposition: Home - Home Health Services Reason For Visit: DJD Knee Left Discharge Diagnosis: Left knee replacement Activity: As commented below Non-emergency contact: Surgeon Call non-emergency contact if: your wound has increased redness and your wound has increased drainage Follow-up/Referrals: Jimbo Nicolas DO [Primary Care Provider] - Diet: Regular Addtl Attending Provider Instructions: Activity and Therapy Recommendations: * If you are using [facility] then therapy will be provided at your home until they feel you have accomplished all of your goals. * If you are using [facility] then Physical Therapy will be provided until they feel you are ready to start Outpatient Physical Therapy. * If you are not using home therapy then Outpatient Physical Therapy should start about 3-5 days from your day of surgery. Therapy will last about 6-10 weeks * It is important not to put a pillow under your knee when you are relaxing or sleeping. It is just as important to make sure you are getting your knee perfectly straight as it is to regain your knee bend. * You were shown a series of exercises in the hospital. Do these exercises three times each day including the exercises you were shown in physical therapy. * Get up and walk several times each day. For the first four weeks, try not to stand or walk for more than one hour at a time. If you do stand or walk for more than one hour, you will not hurt anything, but your leg will likely swell. * As you feel comfortable, you may change from the walker or crutches to a cane and then to independent walking. Medications: * Narcotic You will likely be sent home from the hospital with a prescription for the narcotic pain medication that worked best throughout your stay. * Aspirin Most patients will be required to take Aspirin 81mg twice a day for 6 weeks after surgery. This is obtained [id number] and a prescription is not necessary. * Other medications may be prescribed for specific circumstances. If you have any questions, please call the office at . * Resume previous home medications unless otherwise instructed TEDs/Elastic Stockings: The white elastic stockings help limit swelling and prevent blood clots from forming in your legs.~ The more you wear them, the more they work. Wear them for six weeks. Dressing Care: The dressing can be changed after physical therapy on postop day #1. Daily dry dressing changes for a few days, especially if the incision is still draining some. If the incision is not draining then you may leave the ketty open to air. If there is a little bit of drainage or if the ketty are getting stuck on your clothing then cover the incision with a dry dressing. The ketty will be removed at your 2 week follow-up appointment. Showering: You may shower 5 days from the day of surgery as long as the incision is no longer draining. You may shower with the ketty exposed. Let soapy water run over the ketty and pat them dry. Do not scrub or soak the incision. Things To Watch For: * Drainage from the incision site that occurs more than one week after your surgery. * Increased redness at the incision site. * Fever above 102 degrees Fahrenheit. * Unusual chest pain or shortness of breath. * Call [facility] at with any of the above problems Follow-Up Visit: Follow-up with Dr. Ventura's PA (Jones Shelton) 2-3 weeks after your day of surgery. He will remove your ketty and answer any questions. If you have any additional questions or concerns, Dr Ventura is usually in the office at the same time and will be available An appointment was probably scheduled when you signed-up for surgery in the office. If you have any questions call Office Instructions: More detailed instructions as well as Frequently Asked Questions were provided in a folder by our office when you signed-up for surgery. Please review these instructions when you get home. If you have any further questions or concerns, please feel free to call the office at [phone] Pending Studies at Discharge: No Stand-Alone Forms: My [facility] Medications and DC Order Prescriptions: New oxycodone-acetaminophen 5-325 mg tablet 1 tab PO Q6H PRN (Reason: pain) Qty: 30 RF: 0 Continued gabapentin 100 mg capsule 100 mg PO TID RF: 0 duloxetine 30 mg capsule,delayed release(DR/EC) 30 mg PO QPM RF: 0 furosemide [Lasix] 40 mg tablet 80 mg PO QAM PRN (Reason: Edema) RF: 0 (DME) 3-in-1 Commode Misc See Rx Instructions .MEDSUPPLY Qty: 1 RF: 0 (DME) Wheeled Walker Misc See Rx Instructions .MEDSUPPLY Qty: 1 RF: 0 atorvastatin 40 mg tablet 40 mg PO QPM RF: 0 acetaminophen [Tylenol Arthritis Pain] 650 mg Tablet Extended Release 4 tab PO QAM RF: 0 levothyroxine 125 mcg tablet 125 mcg PO QAM RF: 0 albuterol sulfate 90 mcg/actuation Hfa Aerosol Inhaler 2 puff INHALATION Q6H PRN (Reason: Shortness Of Breath Or Wheezing) RF: 0 celecoxib [Celebrex] 200 mg Capsule 200 mg PO BID RF: 0 ropinirole 1 mg Tablet 1 mg PO HS RF: 0 gabapentin 400 mg Capsule 400 mg PO TID RF: 0 tramadol 50 mg Tablet 100 mg PO Q6H PRN (Reason: Pain) RF: 0 oxybutynin chloride 5 mg Tablet Extended Release 24hr 5 mg PO QAM RF: 0 duloxetine 60 mg Capsule,Delayed Release(Dr/Ec) 60 mg PO QPM RF: 0 oxycodone [OxyContin] 15 mg Tablet,Oral Only,Ext.Rel.12 Hr 15 mg PO Q12H RF: 0 clobetasol 0.025 % Cream 1 applic TOPICAL BID PRN (Reason: Rash) RF: 0 diclofenac sodium 1 % Gel 2 g TOPICAL QID PRN (Reason: Pain) RF: 0 doxycycline hyclate 100 mg Capsule 100 mg PO BID RF: 0 aspirin [Aspir-81] 81 mg Tablet,Delayed Release (Dr/Ec) 81 mg PO BID RF: 0 mupirocin 2 % Ointment 1 applic TOPICAL BID RF: 0 acetaminophen [Tylenol Arthritis Pain] 650 mg Tablet Extended Release 650 - 1,300 mg PO QPM RF: 0 Xarelto 10 mg Tablet 10 mg PO DAILY Qty: 10 RF: 0 oxycodone 5 mg Tablet 5 mg PO Q4H PRN (Reason: Pain) Qty: 60 RF: 0 Discharge Orders: Discharge Order (Routine); Ordered 09/02/21 Ordered By: Jones Ventura Admission Data Admit Date/Time: 09/01/21 13:36 Attending Provider: Jones Ventura Admit Provider: Jones Ventura Primary Care Provider: Jimbo Nicolas
[2021-09-02] MEDS ORDERED: dexAMETHasone 4 MG TAB PO SCH (08:00)
[2021-09-02] MEDS ORDERED: MULTIVITAMIN TAB PO SCH (09:00)
[2021-09-02] MEDS ORDERED: RIVAROXABAN 10 MG TABLET PO SCH (09:00)
[2021-09-02] MEDS ORDERED: OXYBUTYNIN CHLORIDE XL 5 MG TABCR PO SCH (09:00)
[2021-09-02] MEDS: GABAPENTIN 400 MG CAP PO SCH ×2 (09:34→13:23)
[2021-09-02] MEDS: DOCUSATE SODIUM 100 MG CAP PO SCH (09:34)
[2021-09-02] MEDS: GABAPENTIN 100 MG CAP PO SCH ×2 (09:34→13:23)
[2021-09-02] MEDS: MUPIROCIN 2% OINT 22 GM TUBE TOP SCH (09:35)
[2021-09-02] MEDS: DOXYCYCLINE HYCLATE 100 MG CAP PO SCH (10:47)
== END 2021-09-02 17:00 | disposition home health service (06) ==
LOC: 3N 08:10 → ASU 08:10

== ENCOUNTER 2022-03-16 16:09 | Observation (INO) ==
[2022-03-16 17:21] LABS: Basophils # (auto) 0.03 K/uL (0-0.2); Basophils % (auto) 0.7 %; Eosinophils # (auto) 0.16 K/uL (0-0.50); Eosinophils % (auto) 3.7 %; Hematocrit (blood only) 38.2 % (34.1-44.9); Hemoglobin 12.5 g/dl (12.0-16.0); Immature Granulocytes # (auto) 0.01 K/uL (0.00-0.02); Immature Granulocytes % (auto) 0.2 %; Lymphocytes % (auto) 25.2 %; Mean Corpuscular Hemoglobin 32.3 pg (25.0-34.0); Mean Corpuscular Hgb Conc 32.7 g/dL (32.0-36.0); Mean Corpuscular Volume 98.7 fL (80.0-100.0); Mean Platelet Volume 8.8 fL (9.4-12.3); Monocytes # (auto) 0.45 K/uL (0.24-0.82); Monocytes % (auto) 10.3 %; Neutrophils # (auto) 2.61 K/uL (1.4-6.5); Neutrophils % (auto) 59.9 %; Platelet Count 260 K/uL (130-400); RDW Coefficient of Variation 13.4 % (11.5-14.5); Red Blood Count 3.87 M/uL (3.93-5.22); White Blood Count 4.36 K/ul (4.8-10.8)
[2022-03-16 17:33] LABS: INR 1.1 (0.9-1.1); Partial Thromboplastin Time 27.7 Seconds (21.0-31.0); Prothrombin Time 11.4 Seconds (9.0-12.0)
--- NOTE | 2022-03-16 17:33 | Emergency Department Note ---
Impression & Plan Closed fracture of left proximal tibia, Status post left knee replacement, Gross hematuria, Dilation of biliary tract, UTI (urinary tract infection) ED Provider Note NAME: NEDRA WOLFE AGE: 71 SEX: F : 1950 ARRIVES VIA: Ambulance INFORMANT: Patient, ED PROVIDER(S): Best Salinas MD Chief Complaint: Hematuria, leg pain HPI: Patient states that the hematuria began about 2 and half weeks ago. The pa tient states it is been intermittent. Patient denies any abdominal pain nausea or vomiting. The patient does admit to having some dysuria today. No low back pain. Nupore history of kidney stones. Patient denies any recent falls or trauma. The patient states that since she was seen in the emergency department for cellulitis the patient's had to refill her prescription at least 1 time. Patient states that she had persistent issues with the left lower extremity difficulty with walking and pain that she notes primarily to the left lower leg. The patient denies any falls or trauma increase in activity. The patient states that she has been primarily white lower extremity weightbearing with assistance as she feels extremely comfortable on her left leg. The patient has been taking Celebrex 200 mg twice daily oxycodone 5 mg 3 times daily as needed as well as her daily gabapentin 500 mg. Patient denies any chest pains or shortness of breath. Patient does have a prior history of right lower extremity DVT and was on Eliquis for 3 months thereafter. Patient is not on any current blood thinning medications with the exception of antiplatelet baby aspirin. ROS: See HPI for pertinent positives and negatives. A total of 10 systems were reviewed and otherwise negative. Past medical history: See below Surgical history: See below Social history: See below Physical Exam: GENERAL: NAD, wearing a mask, non-toxic. Wearing glasses. EYE EXAM: Normal conjunctiva. PERRL, no anisocoria and EOM's grossly intact w/o pain. NECK: Supple, no nuchal rigidity, no adenopathy, non-tender. No signs of meningismus. FROM of the neck with good chin to chest and neck extension. No stridor. LUNGS: Clear to auscultation. Normal chest wall mechanics. HEART: NSR, no MRG. ABDOMEN: Abdomen soft, non-tender, normo-active bowel sounds, no masses, no rebound or guarding. BACK: No CVA TTP. SKIN: No rashes and no bruising. UPPER EXTREMITIES: Upper extremities are grossly normal. LOWER EXTREMITIES: Mild bilateral nonpitting swelling, venous stasis changes, good DP pulse and no crepitus, pain noted to the left proximal anterior oneill as well as medial aspect of the left calf. NEURO EXAM: A&O x3, cranial nerves II-XII grossly intact, normal speech, moves all 4 extremities. Differential diagnoses: Renal colic, UTI, appendicitis, diverticulitis, mesenteric ischemia, aortic pathology, infections, inflammatory bowel disease, PUD, biliary pathology, as well as other pathologies. Course: Patient was seen and evaluated the bedside. Full history physical exam was performed. Imaging Studies: See Below Cardiac monitoring: An order was placed for continuous cardiac monitoring. The monitor shows a rate of 77 with sinus rhythm. MDM: Patient presents due to concern for hematuria and left leg pain. Patient did have a tibia x-ray and venous Doppler completed of the left lower extremity. Blood work was obtained along with CT of the abdomen pelvis. The patient's blood work shows mild leukopenia 4.3 with a normal H&H and platelet count the patient's kidney function is grossly unremarkable albeit with prerenal azotemia. Patient does take Lasix as a diuretic. X-ray does show that the patient has a tibial fracture. The patient may have an associated pyelitis. Recommended possible ERCP and/or GI follow-up. The patient did receive antibiotics. I did speak with Dr. Bull of orthopedics who recommended a knee immobilizer. Gi patient does have some ductal dilatation. armond the patient's ambulatory dysfunction pain and pyelitis will admit to inpatient service at this time. I did speak with Dr. Elena. Past Med/Surg History Medical History Anxiety Depression Graves disease S/p radioactive iodine > currently on levothyroxine History of COVID-21 Jun 2021, very mild, didn't take actual test, had been exposed to grandson who had covid. Pt then had symptoms. No further issues Hx of bronchitis Inhaler was prescribed for this, no asthma or copd dx Hx of deep venous thrombosis RLE (~1.5 years ago), Eliquis x 3 months after event, no definitive etiology, no issues since Hyperlipidemia Kidney stones Hx Morbid obesity with BMI of 40.0-44.9, adult Neuropathy Restless leg syndrome Staphylococcus infection Present in left ankle > on doxycycline at present > per pt, Dr. Ventura is aware, will assess DOS to make sure ok to proceed with surgery on 09/01/21 UTI (urinary tract infection) Surgical History History of total right knee replacement Hx of colonoscopy Hx of lithotripsy [place] teeth extracted Family History Other No family history of adverse response to anesthesia Social History Smoking Status: Never smoker Second Hand Exposure: No; Do You Dip or Chew Tobacco: No; Hx Alcohol Use: No Hx Substance Use: No Preferred Language: Algerian Communication Ability: Effective Ic Design Manager Required: No Beliefs That Will Affect Care: None marital status: Current Living Situation: Spouse How many Children do You have: 2 Other Information That Helps Us Care for You: No Feels Safe at Home: Yes Safety Concerns: Feels Safe At This Time Assistive Devices: Cane and Walker Allergies Allergies Allergy/AdvReac Type Severity Reaction Status Date / Time Penicillins Allergy Mild Swelling Verified 03/16/22 19:54 of Lip/Tongue/Throat silver sulfadiazine Allergy Mild Rash Verified 09/01/21 08:56 [From Silvadene] Sulfa (Sulfonamide Allergy skin Verified 03/16/22 19:55 Antibiotics) irritation per [facility] Meds Home Medications Medication Instructions Recorded Confirmed albuterol sulfate 90 mcg/actuation 2 puff inhalation Q4 PRN Wheezing 08/24/18 03/16/22 aerosol inhaler atorvastatin 40 mg tablet 40 mg PO QPM 08/24/18 03/16/22 levothyroxine 125 mcg tablet 125 mcg PO DAILYBB 08/24/18 03/16/22 celecoxib 200 mg capsule (Celebrex) 200 mg PO AMHS 01/08/21 03/16/22 clobetasol 0.025 % topical cream 1 applic topical BID PRN Rash 01/08/21 03/16/22 duloxetine 60 mg capsule,delayed 60 mg PO QPM 01/08/21 03/16/22 release gabapentin 400 mg capsule 400 mg PO TID 01/08/21 03/16/22 oxycodone 15 mg tablet,crush 15 mg PO AMHS 01/08/21 03/16/22 resistant,extended release 12 hr (OxyContin) ropinirole 1 mg tablet 1 mg PO HS 01/08/21 03/16/22 acetaminophen 650 mg 650 mg PO QPM 07/03/21 03/16/22 tablet,extended release (Tylenol Arthritis Pain) duloxetine 30 mg capsule,delayed 30 mg PO QPM 07/03/21 03/16/22 release furosemide 40 mg tablet (Lasix) 80 mg PO QAM PRN Edema 07/03/21 03/16/22 gabapentin 100 mg capsule 100 mg PO TID 07/03/21 03/16/22 aspirin 81 mg tablet,delayed 81 mg PO AMHS 08/29/21 03/16/22 release doxycycline hyclate 100 mg capsule 100 mg PO AMHS 08/29/21 03/16/22 oxybutynin chloride 10 mg 10 mg PO QAM 03/16/22 03/16/22 tablet,extended release 24 hr oxycodone 5 mg tablet 5 mg PO Q8 PRN Pain, Severe 03/16/22 03/16/22 Previous Rx's Medication Instructions Recorded 3-in-1 Commode #1 ea 12/09/20 Wheeled Walker #1 ea 12/09/20 Results & Data (ED) Vital Signs Vital Signs - 24 hr 03/16/22 17:30 03/16/22 19:00 03/16/22 21:00 Pulse Rate [Right Finger] 70 Pulse Rhythm [Right Finger] Regular Pulse Strength [Right Finger] Normal Respiratory Rate 20 17 19 Respiratory Effort / Characteristics Non-Labored Non-Labored Respiratory Depth Normal Normal Normal Respiratory Pattern Regular Regular Blood Pressure [Left Arm] 165/90 H Blood Pressure Mean [Left Arm] 115 Blood Pressure Position [Left Arm] Lying Pulse Oximetry 99 98 Oxygen Delivery Method Room Air Room Air Home Medications Current Medication List: was personally reviewed by me Laboratory Data Attestation: I reviewed the patient's lab results. Result diagrams: 03/17/22 11:01 03/17/22 05:50 Lab Results 03/16/22 03/16/22 03/16/22 Range/Units 17:00 17:00 17:00 WBC 4.36 L (4.8-10.8) K/ul RBC 3.87 L (3.93-5.22) M/uL Hgb 12.5 (12.0-16.0) g/dl Hct 38.2 (34.1-44.9) % MCV 98.7 (80.0-100.0) fL MCH 32.3 (25.0-34.0) pg MCHC 32.7 (32.0-36.0) g/dL RDW Std Deviation 49.0 H (36.4-46.3) fL RDW Coeff of Nakul 13.4 (11.5-14.5) % Plt Count 260 (130-400) K/uL MPV 8.8 L (9.4-12.3) fL Immature Gran % (Auto) 0.2 % Neut % (Auto) 59.9 % Lymph % (Auto) 25.2 % [place] % (Auto) 10.3 % Eos % (Auto) 3.7 % Baso % (Auto) 0.7 % Neut # (Auto) 2.61 (1.4-6.5) K/uL Lymph # (Auto) 1.10 L (1.2-3.4) K/uL [place] # (Auto) 0.45 (0.24-0.82) K/uL Eos # (Auto) 0.16 (0-0.50) K/uL Baso # (Auto) 0.03 (0-0.2) K/uL Immature Gran # (Auto) 0.01 (0.00-0.02) K/uL PT 11.4 (9.0-12.0) Seconds INR 1.1 (0.9-1.1) APTT 27.7 (21.0-31.0) Seconds PTT Ratio 1.0 Sodium 138 (136-145) mmol/L Potassium 4.3 (3.5-5.1) mmol/L Chloride 102 (98-107) mmol/L Carbon Dioxide 29 (21-32) mmol/L Anion Gap 7 (3-11) BUN 23 (6-23) mg/dl Creatinine 0.77 (0.6-1.2) mg/dl Est Cr Clr Drug Dosing Not Reportable Est GFR ( Amer) 90.0 ml/min Est GFR (Non-Af Amer) 77.7 ml/min BUN/Creatinine Ratio 29.9 H (10-20) Glucose 92 (70-99(Fasting)) mg/dl Calcium 9.2 (8.5-10.1) mg/dl Total Bilirubin 0.6 (0.2-1.0) mg/dl AST 52 H (13-39) U/L ALT 49 (7-52) U/L Alkaline Phosphatase 259 H (34-104) U/L Total Protein 7.3 (6.0-8.3) gm/dl Albumin 3.8 (3.4-5.0) gm/dl Globulin 3.5 (2.5-4.0) gm/dl Albumin/Globulin Ratio 1.1 (0.9-2) SARS-CoV-2, RNA, NAAT (NEGATIVE) 03/16/22 Range/Units 20:50 WBC (4.8-10.8) K/ul RBC (3.93-5.22) M/uL Hgb (12.0-16.0) g/dl Hct (34.1-44.9) % MCV (80.0-100.0) fL MCH (25.0-34.0) pg MCHC (32.0-36.0) g/dL RDW Std Deviation (36.4-46.3) fL RDW Coeff of Nakul (11.5-14.5) % Plt Count (130-400) K/uL MPV (9.4-12.3) fL Immature Gran % (Auto) % Neut % (Auto) % Lymph % (Auto) % [place] % (Auto) % Eos % (Auto) % Baso % (Auto) % Neut # (Auto) (1.4-6.5) K/uL Lymph # (Auto) (1.2-3.4) K/uL [place] # (Auto) (0.24-0.82) K/uL Eos # (Auto) (0-0.50) K/uL Baso # (Auto) (0-0.2) K/uL Immature Gran # (Auto) (0.00-0.02) K/uL PT (9.0-12.0) Seconds INR (0.9-1.1) APTT (21.0-31.0) Seconds PTT Ratio Sodium (136-145) mmol/L Potassium (3.5-5.1) mmol/L Chloride (98-107) mmol/L Carbon Dioxide (21-32) mmol/L Anion Gap (3-11) BUN (6-23) mg/dl Creatinine (0.6-1.2) mg/dl Est Cr Clr Drug Dosing Est GFR ( Amer) ml/min Est GFR (Non-Af Amer) ml/min BUN/Creatinine Ratio (10-20) Glucose (70-99(Fasting)) mg/dl Calcium (8.5-10.1) mg/dl Total Bilirubin (0.2-1.0) mg/dl AST (13-39) U/L ALT (7-52) U/L Alkaline Phosphatase (34-104) U/L Total Protein (6.0-8.3) gm/dl Albumin (3.4-5.0) gm/dl Globulin (2.5-4.0) gm/dl Albumin/Globulin Ratio (0.9-2) SARS-CoV-2, RNA, NAAT NEGATIVE (NEGATIVE) Administered Medications Doxycycline Hyclate (Doxycycline Hyclate 100 Mg Cap) 100 mg PO AMHS [facility] Stop: 03/18/22 08:59 Last Admin: 03/17/22 07:19 Dose: 100 mg Documented By: TROY Gabapentin (Gabapentin 100 Mg Cap) 100 mg PO TID [facility] Stop: 04/16/22 08:59 Last Admin: 03/17/22 13:21 Dose: 100 mg Documented By: Admin: 03/17/22 07:20 Dose: 100 mg Documented By: TROY Gabapentin (Gabapentin 400 Mg Cap) 400 mg PO TID [facility] Stop: 04/16/22 08:59 Last Admin: 03/17/22 13:21 Dose: 400 mg Documented By: Admin: 03/17/22 07:21 Dose: 400 mg Documented By: TROY Hydromorphone HCl (Hydromorphone Inj 0.5 Mg/0.5 Ml Syr) 0.5 mg IV Q3H PRN PRN Reason: Severe Pain Stop: 03/30/22 23:52 Last Admin: 03/17/22 11:21 Dose: 0.5 mg Documented By: Admin: 03/17/22 05:50 Dose: 0.5 mg Documented By: Admin: 03/17/22 01:48 Dose: 0.5 mg Documented By: HUGO Ciprofloxacin (Cipro / D5w) 400 mg in 200 mls @ 100 mls/hr IV Q12H [facility]; Protocol Stop: 03/27/22 09:29 Last Infusion: 03/17/22 09:41 Dose: 0 mls/hr Documented By: Admin: 03/17/22 07:21 Dose: 100 mls/hr Documented By: TROY Sodium Chloride (Nss 1000ml) 1,000 mls @ 80 mls/hr IV .[id number] [facility] Stop: 04/15/22 23:52 Last Admin: 03/17/22 13:39 Dose: 80 mls/hr Documented By: Infusion: 03/17/22 13:38 Dose: 0 mls/hr Documented By: Admin: 03/17/22 00:59 Dose: 80 mls/hr Documented By: HUGO Levothyroxine Sodium (Levothyroxine Sodium 125 Mcg Tablet) 125 mcg PO DAILYBB [facility] Stop: 04/16/22 06:29 Last Admin: 03/17/22 05:50 Dose: 125 mcg Documented By: HUGO Miscellaneous (Clobetasol 0.025 % Cream - Order Awaiting Action) 1 each N/A QS [facility] Stop: 04/16/22 07:59 Last Admin: 03/17/22 16:46 Dose: Not Given Documented By: Admin: 03/17/22 07:21 Dose: Not Given Documented By: TROY Oxybutynin Chloride (Oxybutynin Chloride Xl 5 Mg Tabcr) 10 mg PO QAM [facility] Stop: 04/16/22 08:59 Last Admin: 03/17/22 07:19 Dose: 10 mg Documented By: TROY Oxycodone HCl (Oxycodone Hcl 15 Mg Tabcr (Oxycontin)) 15 mg PO AMHS [facility] Stop: 03/31/22 08:59 Last Admin: 03/17/22 08:57 Dose: 15 mg Documented By: TROY Oxycodone HCl (Oxycodone Hcl Ir 5 Mg Tab (Immediate Release)) 5 mg PO Q8 PRN PRN Reason: Pain, Severe Stop: 03/30/22 23:52 Last Admin: 03/17/22 07:35 Dose: 5 mg Documented By: TROY Discontinued Medications Acetaminophen (Acetaminophen 325 Mg Tab) 650 mg PO NOW STA Stop: 03/17/22 01:47 Last Admin: 03/17/22 02:56 Dose: 650 mg Documented By: HUGO Atorvastatin Calcium (Atorvastatin 40 Mg Tab) 40 mg PO NOW STA Stop: 03/17/22 01:46 Last Admin: 03/17/22 02:56 Dose: 40 mg Documented By: HUGO Ciprofloxacin (Ciprofloxacin 500 Mg Tab) 500 mg PO NOW STA Stop: 03/16/22 20:13 Last Admin: 03/16/22 20:40 Dose: 500 mg Documented By: SIMRAN Duloxetine HCl (Duloxetine Hcl 60 Mg Cap) 60 mg PO NOW STA Stop: 03/17/22 01:44 Last Admin: 03/17/22 02:25 Dose: 60 mg Documented By: HUGO Duloxetine HCl (Duloxetine Hcl 30 Mg Cap) 30 mg PO NOW STA Stop: 03/17/22 01:44 Last Admin: 03/17/22 02:25 Dose: 30 mg Documented By: HUGO Fentanyl Citrate (Fentanyl Citrate 100 Mcg/2 Ml Vial) 25 mcg IV NOW STA Stop: 03/16/22 20:20 Last Admin: 03/16/22 20:40 Dose: 25 mcg Documented By: SIMRAN Gabapentin (Gabapentin 400 Mg Cap) 400 mg PO NOW STA Stop: 03/17/22 01:44 Last Admin: 03/17/22 02:25 Dose: 400 mg Documented By: HUGO Gabapentin (Gabapentin 100 Mg Cap) 100 mg PO NOW STA Stop: 03/17/22 01:44 Last Admin: 03/17/22 02:25 Dose: 100 mg Documented By: HUGO Ioversol (Optiray 350 100ml) 80 ml IV ONCE ONE Stop: 03/16/22 19:45 Last Admin: 03/16/22 19:45 Dose: 80 ml Documented By: LA Morphine Sulfate (Morphine Sulfate 2 Mg/Ml Carp) 2 mg IV NOW STA Stop: 03/16/22 18:02 Last Admin: 03/16/22 18:37 Dose: 2 mg Documented By: SIMRAN Morphine Sulfate (Morphine Sulfate 4 Mg/Ml 1 Ml Carp\Vial) 3 mg IV NOW STA Stop: 03/16/22 21:34 Last Admin: 03/16/22 22:32 Dose: 3 mg Documented By: SIMRAN Ropinirole HCl (Ropinirole Hcl 1 Mg Tablet) 1 mg PO NOW ONE Stop: 03/17/22 01:45 Last Admin: 03/17/22 02:25 Dose: 1 mg Documented By: TNK Imaging Data Radiologist's Impression: Abdomen/Pelvis CT 03/16/22 18:01 CT OF THE ABDOMEN AND PELVIS WITH CONTRAST CLINICAL HISTORY: Hematuria. COMPARISON STUDY: None. TECHNIQUE: Following IV administration of 80 mL of Optiray, axial images of the abdomen and pelvis were obtained from the lung bases to the proximal femurs. Images were reviewed in the axial, sagittal, and coronal planes. IV contrast was administered without complication. Automated exposure control was utilized for the study. A dose lowering technique was utilized adhering to the principles of ALARA. CT DOSE: 1289.26 mGy.cm FINDINGS: A hiatal hernia with partially intrathoracic stomach is noted. The gallbladder is distended. There is no adjacent infiltration. Note is made of mild to moderate biliary ductal dilatation. There is also suspected dilatation of the pancreatic duct. There is no peripancreatic stranding. Ducts are dilated to the level of the ampulla. Spleen, adrenal glands are unremarkable. A horseshoe kidney is noted. Mild dilatation of the renal pelves is probably chronic. There is mild urothelial thickening of the collecting system of the left renal moiety and the left ureter. No ureteral calculi are present. Moderate bladder wall thickening is noted with adjacent stranding. No renal abscess is present. There is no evidence for a bowel obstruction. Prominent bilateral iliac chain lymph nodes are noted. Index left external iliac lymph node on image 363 of 521 measures 2.6 x 1.4 cm. These nodes may contain calcifications. IMPRESSION: 1. Horseshoe kidney. Mild urothelial thickening of the collecting system left renal moiety and the left ureter suggests pyelitis. Bladder wall thickening with adjacent stranding suggests cystitis. No renal abscess. 2. Biliary and pancreatic ductal dilatation to the level of the ampulla. The etiology for this ductal dilatation is not clear on this exam and nonemergent GI consultation is recommended for consideration for ERCP to exclude an ampullary lesion. 3. Distended gallbladder without adjacent stranding. 4. Hiatal hernia with partially intrathoracic stomach. 5. Prominent bilateral iliac chain lymph nodes which may contain calcifications. These are likely benign however a follow-up CT of the abdomen and pelvis in 6 months to ensure stability is recommended. ACT 112: Positive. There are findings on this exam that require communication between the performing entity and the patient following Patient Test Result Information Act ([place] Act 112) guidelines. Electronically signed by: Truman Morin M.D. 03/16/2022 8:00 PM Tibia/Fibula X-Ray 03/16/22 18:01 XR tibia fibula LT 2V CLINICAL HISTORY: Left leg pain. COMPARISON: CT of the left lower leg February 22, 2022. FINDINGS: Left knee arthroplasty is noted. Left knee and lower leg soft tissue swelling is noted. There has been interval development of an acute to subacute nondisplaced proximal left tibial fracture which extends through the proximal metadiaphysis of the left tibia. Fracture extends through the medial and lateral cortices of the left tibia. Fracture may extend to the tibial component of the left knee arthroplasty. Minimal callus formation is noted. No acute left fibular fracture is present. Talar dome is intact. IMPRESSION: Status post total left knee arthroplasty. Interval development of an acute to subacute nondisplaced proximal left tibial fracture, as detailed above. Fracture may extend to the tibial component of the arthroplasty. ACT 112: Negative or not required by law. Electronically signed by: Truman Morin M.D. 03/16/2022 7:09 PM Discharge Plan Visit Data Chief Complaint: Hematuria ED Provider: Best Salinas Discharge Problem: Closed fracture of left proximal tibia, Status post left knee replacement, Gross hematuria, Dilation of biliary tract, UTI (urinary tract infection) Patient Disposition: Admitted As Inpatient Discharge Instructions Interventions: ED Discharge Assessment Last Done: 03/16/22 23:50
[2022-03-16 17:59] LABS: Alanine Aminotransferase 49 U/L (7-52); Albumin Globulin Ratio 1.1 (0.9-2); Albumin Level 3.8 gm/dl (3.4-5.0); Alkaline Phosphatase 259 U/L (34-104); Anion Gap 7 (3-11); Aspartate Aminotransferase 52 U/L (13-39); BUN Creatinine Ratio 29.9 (10-20); Bilirubin,Total 0.6 mg/dl (0.2-1.0); Blood Urea Nitrogen 23 mg/dl (6-23); Calcium 9.2 mg/dl (8.5-10.1); Carbon Dioxide 29 mmol/L (21-32); Chloride 102 mmol/L (98-107); Est GFR (Non-African American) 77.7 ml/min; Globulin 3.5 gm/dl (2.5-4.0); Glucose 92 mg/dl (70-99(Fasting)); Potassium 4.3 mmol/L (3.5-5.1); Sodium 138 mmol/L (136-145); Total Protein 7.3 gm/dl (6.0-8.3)
[2022-03-16] MEDS ORDERED: MoRPHine SULFATE 2 MG/ML CARP IV STA (18:01)
[2022-03-16 18:36] LABS: Appearance Urine Turbid (Clear); Bacteria Urine Automated Negative (Negative); Blood Urine 3+ (Negative); Color Urine Red; Glucose Urine UA Negative (Negative); Ketones Urine Negative (Negative); Leukocyte Esterase Urine 2+ (Negative); Nitrite Urine Positive (Negative); Protein Urine 3+ (Negative); RBC Urine Automated >30 /hpf (0-4); Specific Gravity Urine 1.023 (1.000-1.030); Urobilinogen Urine Negative (Negative); WBC Urine Automated >30 /hpf (0-5)
--- NOTE | 2022-03-16 19:11 | XRay Report ---
XR tibia fibula LT 2V CLINICAL HISTORY: Left leg pain. COMPARISON: CT of the left lower leg February 22, 2022. FINDINGS: Left knee arthroplasty is noted. Left knee and lower leg soft tissue swelling is noted. Th ere has been interval development of an acute to subacute nondisplaced proximal left tibial fracture which extends through the proximal metadiaphysis of the left tibia. Fracture extends through the medi al and lateral cortices of the left tibia. Fracture may extend to the tibial component of the left kn ee arthroplasty. Minimal callus formation is noted. No acute left fibular fracture is present. Talar dome is intact. IMPRESSION: Status post total left knee arthroplasty. Interval development of an acute to subacute no ndisplaced proximal left tibial fracture, as detailed above. Fracture may extend to the tibial compon ent of the arthroplasty. ACT 112: Negative or not required by law. Electronically signed by: Truman Morin M.D. 03/16/2022 7:09 PM
[2022-03-16 19:14] LABS: Bilirubin Urine 1+ (Negative)
[2022-03-16] MEDS ORDERED: OPTIRAY 350 100ml IV ONE (19:44)
--- NOTE | 2022-03-16 20:03 | CT Scan Report ---
CT OF THE ABDOMEN AND PELVIS WITH CONTRAST CLINICAL HISTORY: Hematuria. COMPARISON STUDY: None. TECHNIQUE: Following IV administration of 80 mL of Optiray, axial images of the abdomen and pelvis we re obtained from the lung bases to the proximal femurs. Images were reviewed in the axial, sagittal, and coronal planes. IV contrast was administered without complication. Automated exposure control wa s utilized for the study. A dose lowering technique was utilized adhering to the principles of ALARA . CT DOSE: 1289.26 mGy.cm FINDINGS: A hiatal hernia with partially intrathoracic stomach is noted. The gallbladder is distended . There is no adjacent infiltration. Note is made of mild to moderate biliary ductal dilatation. Ther e is also suspected dilatation of the pancreatic duct. There is no peripancreatic stranding. Ducts ar e dilated to the level of the ampulla. Spleen, adrenal glands are unremarkable. A horseshoe kidney is noted. Mild dilatation of the renal pelves is probably chronic. There is mild urothelial thickening of the collecting system of the left renal moiety and the left ureter. No ureteral calculi are presen t. Moderate bladder wall thickening is noted with adjacent stranding. No renal abscess is present. Th ere is no evidence for a bowel obstruction. Prominent bilateral iliac chain lymph nodes are noted. In dex left external iliac lymph node on image 363 of 521 measures 2.6 x 1.4 cm. These nodes may contain calcifications. IMPRESSION: 1. Horseshoe kidney. Mild urothelial thickening of the collecting system left renal moiety and the le ft ureter suggests pyelitis. Bladder wall thickening with adjacent stranding suggests cystitis. No re nal abscess. 2. Biliary and pancreatic ductal dilatation to the level of the ampulla. The etiology for this ductal dilatation is not clear on this exam and nonemergent GI consultation is recommended for consideratio n for ERCP to exclude an ampullary lesion. 3. Distended gallbladder without adjacent stranding. 4. Hiatal hernia with partially intrathoracic stomach. 5. Prominent bilateral iliac chain lymph nodes which may contain calcifications. These are likely mrac ign however a follow-up CT of the abdomen and pelvis in 6 months to ensure stability is recommended. ACT 112: Positive. There are findings on this exam that require communication between the performing entity and the patient following Patient Test Result Information Act ([place] Act 112) guidelines. Electronically signed by: Truman Morin M.D. 03/16/2022 8:00 PM
[2022-03-16] MEDS ORDERED: CIPROFLOXACIN 500 MG TAB PO STA (20:12)
[2022-03-16] MEDS ORDERED: fentaNYL citrate 100 MCG/2 ML VIAL IV STA (20:19)
[2022-03-16] MEDS ORDERED: MoRPHine SULFATE 4 MG/ML 1 ML CARP\\VIAL IV STA (21:33)
[2022-03-16] MEDS ORDERED: ALBUTEROL HFA 8 GM INHALER INH PRN (23:53)
[2022-03-16] MEDS ORDERED: POLYETHYLENE (MIRALAX) 17 GM PACK PO PRN (23:53)
[2022-03-16] MEDS ORDERED: FUROSEMIDE 80 MG TAB PO PRN (23:53)
[2022-03-16] MEDS ORDERED: NITROGLYCERIN SL 0.4 MG/TAB TAB SL PRN (23:53)
[2022-03-17] MEDS: SODIUM CHLORIDE 0.9% 1000ML 1,000 ML IV SCH ×2 (00:59→13:39)
--- NOTE | 2022-03-17 01:22 | History and Physical Report ---
DATE OF ADMISSION: 03/16/2022. CHIEF COMPLAINT: Left lower extremity pain and hematuria. HISTORY OF PRESENT ILLNESS: This is a 71-year-old female with past medical history significant for hyperlipidemia, acquired hypothyroidism, osteoarthritis of knee, depression, who lives at home with her , was brought in by daughter because of having ambulatory dysfunction, left leg pain, and hematuria. The patient was in the ER on 02/21/2022 with left leg pain, at that time thought to be cellulitis. She was prescribed antibiotic and she was discharged home, but the patient says for the last 2 weeks, she is not able to ambulate. 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 She thought that the pain in the leg was because of cellulitis. She did not fall, but in the last few days she developed hematuria and as she was not getting better, daughter brought her to the hospital. Denies any fever or chills. No diarrhea, no constipation, no blood in the stools or black stools. No abdominal pain, no chest pain, no shortness of breath, no nausea, no vomiting, no headache, no blurred visions, no earache, no runny nose, no sore throat. No cough. Currently, resting comfortably and hemodynamically stable. In the ER, she was found to have UTI and also left proximal tibial fracture. The patient had a left total knee arthroplasty in August and she did fine. Prior to a couple of weeks ago, she was mostly walking by herself, sometimes using a cane. Denies any recent falls. ALLERGIES: PENICILLINS, BACTRIM. PAST MEDICAL HISTORY: As mentioned above. PAST SURGICAL HISTORY: Colonoscopy, lithotripsy, microsurgery in the left great toe, left knee arthroplasty. MEDICATIONS: The patient is on Tylenol Arthritis Pain 650 mg p.o. q.p.m., albuterol 2 puffs inhalation q. 4 hours p.r.n., aspirin 81 mg p.o. b.i.d., atorvastatin 40 mg p.o. daily, Celebrex 200 mg p.o. b.i.d., doxycycline 100 mg p.o. b.i.d., last dose is on tomorrow, duloxetine 90 mg p.o. daily, Lasix 80 mg p.o. daily p.r.n., gabapentin 500 mg p.o. t.i.d., levothyroxine 125 mcg p.o. daily, oxybutynin 10 mg p.o. a.m., oxycodone 5 mg p.o. 8 hours p.r.n., OxyContin 15 mg p.o. b.i.d., ropinirole 1 mg p.o. at bedtime. FAMILY HISTORY: Significant for father has alcoholism, lymphoma; mother has heart disorder, COPD; daughter has fibromyalgia, migraines; maternal grandfather had stroke, heart disorder; paternal grandfather had stroke, cancer. SOCIAL HISTORY: , lives with her . No smoking, no alcohol, no drug use. REVIEW OF SYSTEMS: As per HPI. Rest of the review of systems is negative. PHYSICAL EXAMINATION: GENERAL: The patient is of moderate build, not in acute distress. VITAL SIGNS: Temperature 36.7, pulse 69, respiratory rate 17, blood pressure 165/90, oxygen 99% on room air. HEENT: Pupils equal, round and reactive to light. Oral mucosa moist. NECK: No JVD, no neck masses. CARDIOVASCULAR: S1 and S2 heard. Regular rate and rhythm. No murmur, no gallop. RESPIRATORY SYSTEM: Normal AP diameter. No accessory muscle use. No wheezing, no crackles. ABDOMEN: Soft, bowel sounds present, nontender, no distention. CENTRAL NERVOUS SYSTEM: Cranial nerves II-XII grossly intact, nonfocal. EXTREMITIES: Chronic lower extremity skin changes. No obvious erythema seen. Chronic edema seen. LABORATORY DATA: WBC 4.3, hemoglobin 12.5, hematocrit 38.2, platelets 260. PT 11.4, INR 1.1, APTT 27.7. Sodium 138, potassium 4.3, chloride 102, bicarbonate 29, BUN 23, creatinine 0.7, serum glucose 92, calcium 9.2, total bilirubin 0.6, AST 52, ALT 49, alkaline phosphatase 259. Urinalysis, +3 blood, positive for nitrite, +2 leukocyte esterase. SARS-CoV-2 rapid test negative. IMAGING DATA: Tibia, fibula x-ray, status post left total knee arthroplasty. Interval development of acute or subacute nondisplaced proximal left tibial fracture. CT of abdomen and pelvis, horseshoe kidney, mild urothelial thickening of the collecting system of the left ureter, suggest pyelitis. Bladder wall thickening, adjacent stranding to suggest cystitis. No renal abscess. Bilateral pancreatic duct dilatation at the level of ampulla, the etiology of this ductal dilatation is not clear on this exam. A nonemergent GI consultation is recommended for the consideration for ERCP to exclude an ampullary lesion. Distended gallbladder without adjacent stranding. Hiatal hernia with partial intrathoracic stomach. Prominent bilateral iliac chain lymph nodes, which may contain calcifications, they are likely benign, however, a followup CT of the abdomen and pelvis in 6 months to ensure stability is recommended. ASSESSMENT AND PLAN: This is a 71-year-old female who presents ambulatory dysfunction and hematuria. 1. Ambulatory dysfunction, mostly from proximal tibial fracture: The patient is placed in knee immobilizer. Ortho consult in a.m. PT, OT when stable. 2. Hematuria going on for the last few days: Hemoglobin is stable at 12.5. Secondary to urinary tract infection. CAT scan is showing pyelitis and cystitis. The patient is allergic to penicillins. Given Po Cipro in er. Will continue with iv cipro. Follow the cultures. Follow the response. Gentle fluids. Follow H and H. Have Urology consult in the a.m. Will keep n.p.o. after midnight . We will hold the aspirin. 3. Biliary and pancreatic ductal dilatation: Will consult GI for further recommendations. 4. Bilateral iliac chain lymph nodes, prominent bilateral iliac lymph nodes: Follow up for repeat CAT scan in 6 months. 5. Chronic osteoarthritis of the knees: Continue her home pain medications. 6. History of hypothyroidism: On Synthroid. We will follow the thyroid profile. 7. Depression: On duloxetine. 8. Hyperlipidemia: On statin. 9. Deep venous thrombosis prophylaxis: Sequential compression devices for now. DISPOSITION: Closely monitor in the med tele. PT/OT prior to discharge. Social service to help with discharge planning. Level 1 full code. Job ID: [id number] MTDD
[2022-03-17] MEDS ORDERED: GABAPENTIN 100 MG CAP PO STA (01:43)
[2022-03-17] MEDS ORDERED: DULoxetine HCL 60 MG CAP PO STA (01:43)
[2022-03-17] MEDS ORDERED: GABAPENTIN 400 MG CAP PO STA (01:43)
[2022-03-17] MEDS ORDERED: DULoxetine HCL 30 MG CAP PO STA (01:43)
[2022-03-17] MEDS ORDERED: rOPINIRole HCL 1 MG TABLET PO ONE (01:44)
[2022-03-17] MEDS ORDERED: ATORVASTATIN 40 MG TAB PO STA (01:45)
[2022-03-17] MEDS ORDERED: ACETAMINOPHEN 325 MG TAB PO STA (01:46)
[2022-03-17] MEDS: HYDROmorphone INJ 0.5 MG/0.5 ML SYR IV PRN ×5 (01:48→19:44)
[2022-03-17] MEDS: LEVOTHYROXINE SODIUM 125 MCG TABLET PO SCH (05:50)
[2022-03-17 06:08] LABS: Basophils # (auto) 0.02 K/uL (0-0.2); Basophils % (auto) 0.4 %; Eosinophils # (auto) 0.18 K/uL (0-0.50); Eosinophils % (auto) 3.6 %; Hematocrit (blood only) 34.6 % (34.1-44.9); Hemoglobin 11.7 g/dl (12.0-16.0); Immature Granulocytes # (auto) 0.01 K/uL (0.00-0.02); Immature Granulocytes % (auto) 0.2 %; Lymphocytes # (auto) 1.79 K/uL (1.2-3.4); Lymphocytes % (auto) 35.6 %; Mean Corpuscular Hemoglobin 32.1 pg (25.0-34.0); Mean Corpuscular Hgb Conc 33.8 g/dL (32.0-36.0); Mean Corpuscular Volume 94.8 fL (80.0-100.0); Mean Platelet Volume 8.8 fL (9.4-12.3); Monocytes # (auto) 0.59 K/uL (0.24-0.82); Monocytes % (auto) 11.7 %; Neutrophils # (auto) 2.44 K/uL (1.4-6.5); Neutrophils % (auto) 48.5 %; Platelet Count 242 K/uL (130-400); RDW Coefficient of Variation 13.1 % (11.5-14.5); RDW Standard Deviation 45.2 fL (36.4-46.3); Red Blood Count 3.65 M/uL (3.93-5.22); White Blood Count 5.03 K/ul (4.8-10.8)
--- NOTE | 2022-03-17 06:36 | Orthopedic Consultation ---
Date of Service March 17, 2022 Assessment & Plan (1) Closed fracture of left proximal tibia: Fortunately this can be treated nonoperatively. He looks to a subacute stress fracture that has gone across the metadiaphyseal region of her left proximal tibia. The implants seem to be in good alignment and I do not see any evidence of complication with the implants. It looks like the fracture is already trying to heal. Ongoing to keep her nonweightbearing until I see more healing on the x-rays and until more of her pain subsides. She is currently in a knee immobilizer mostly for comfort but she can remove the knee immobilizer and bend her knees down if it is more comfortable while she is sitting. I do not think bending the knee will influence the fracture. I told her this will take anywhere from 8 to 12 weeks from the initial fracture to improve. I will continue to follow her closely in the office. She will be nonweightbearing. The knee immobilizer is for comfort only. She can follow-up with orthopedics in 2 weeks for repeat x-rays. Full orthopedic discharge instructions were placed in the discharge summary. History of Present Illness Reason for Consultation: Stress fracture left proximal tibia. Requesting Physician: . Attending Physician: Surendra Lassiter MD Christelle is a pleasant 71-year-old female who underwent a left knee replacement in August 2021. She did very well for the first 5 months. She is not having any left knee pain. She then began having pain in her left leg. She came to the hospital and a CT scan was ordered in late January which showed some cellulitis but no evidence of fracture. Unfortunately the past 3 weeks she has been almost unable to ambulate. She been having a lot of pain in her left leg. She denies any falls. She was taken back to the hospital by her family. X-rays of her left knee show a nondisplaced stress fracture in the metaphysis of the left proximal tibia. She was placed in a knee immobilizer. She was also having some hematuria. She was admitted to the medical service. Orthopedics was consulted to evaluate and treat.. Allergies Allergy/AdvReac Type Severity Reaction Status Date / Time Penicillins Allergy Mild Swelling Verified 03/16/22 19:54 of Lip/Tongue/Throat silver sulfadiazine Allergy Mild Rash Verified 09/01/21 08:56 [From Silvadene] Sulfa (Sulfonamide Allergy skin Verified 03/16/22 19:55 Antibiotics) irritation per [facility] Medications Medication Instructions Recorded Confirmed Type albuterol sulfate 90 mcg/actuation 2 puff inhalation Q4 PRN Wheezing 08/24/18 03/16/22 History aerosol inhaler atorvastatin 40 mg tablet 40 mg PO QPM 08/24/18 03/16/22 History levothyroxine 125 mcg tablet 125 mcg PO DAILYBB 08/24/18 03/16/22 History 3-in-1 Commode #1 ea 12/09/20 08/29/21 Rx Wheeled Walker #1 ea 12/09/20 08/29/21 Rx celecoxib 200 mg capsule (Celebrex) 200 mg PO AMHS 01/08/21 03/16/22 History clobetasol 0.025 % topical cream 1 applic topical BID PRN Rash 01/08/21 03/16/22 History duloxetine 60 mg capsule,delayed 60 mg PO QPM 01/08/21 03/16/22 History release gabapentin 400 mg capsule 400 mg PO TID 01/08/21 03/16/22 History oxycodone 15 mg tablet,crush 15 mg PO AMHS 01/08/21 03/16/22 History resistant,extended release 12 hr (OxyContin) ropinirole 1 mg tablet 1 mg PO HS 01/08/21 03/16/22 History acetaminophen 650 mg 650 mg PO QPM 07/03/21 03/16/22 History tablet,extended release (Tylenol Arthritis Pain) duloxetine 30 mg capsule,delayed 30 mg PO QPM 07/03/21 03/16/22 History release furosemide 40 mg tablet (Lasix) 80 mg PO QAM PRN Edema 07/03/21 03/16/22 History gabapentin 100 mg capsule 100 mg PO TID 07/03/21 03/16/22 History aspirin 81 mg tablet,delayed 81 mg PO AMHS 08/29/21 03/16/22 History release doxycycline hyclate 100 mg capsule 100 mg PO AMHS 08/29/21 03/16/22 History oxybutynin chloride 10 mg 10 mg PO QAM 03/16/22 03/16/22 History tablet,extended release 24 hr oxycodone 5 mg tablet 5 mg PO Q8 PRN Pain, Severe 03/16/22 03/16/22 History Past Med/Surg History Medical History Anxiety Depression Graves disease S/p radioactive iodine > currently on levothyroxine History of COVID-21 Jun 2021, very mild, didn't take actual test, had been exposed to grandson who had covid. Pt then had symptoms. No further issues Hx of bronchitis Inhaler was prescribed for this, no asthma or copd dx Hx of deep venous thrombosis RLE (~1.5 years ago), Eliquis x 3 months after event, no definitive etiology, no issues since Hyperlipidemia Kidney stones Hx Morbid obesity with BMI of 40.0-44.9, adult Neuropathy Restless leg syndrome Staphylococcus infection Present in left ankle > on doxycycline at present > per pt, Dr. 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 Physical Exam On physical examination of left leg, there is a knee immobilizer in place. I took off the knee immobilizer and her incision is fully healed. There is no signs of infection. She does have tenderness to deep palpation along the proximal tibia.. Constitutional WD/WN, vitals as above Eyes PERRL, conjunctivae normal, anicteric sclerae ENMT external ear and nose normal, oropharynx normal Neck trachea midline, no thyromegaly Respiratory normal respiratory effort, lungs clear to auscultation Cardiovascular RRR, no murmur, no edema Gastrointestinal (Abdomen) normal bowel sounds, soft, nontender, no hepatosplenomegaly Skin no rashes, warm and dry Psychiatric A+Ox3, euthymic affect Results & Data Results & Data Laboratory Results . Diagnostic Findings X-rays of the left knee do show a nondisplaced fracture across the metadiaphyseal region of the left proximal tibia. There is a little bit of cortical formation already showing that this is likely a subacute fracture.. PG Care Time/CCT Total # of Minutes Spent Total Time Spent with Patient: Total time spent is greater than 50% in coordination of care (as documented) at patient's floor/unit and/or counseling patient: Coding Level of Care Code 25154 Inpt Consult Level 4 Diagnoses Closed fracture of left proximal tibia S82.102A
[2022-03-17 06:49] LABS: BUN Creatinine Ratio 22.5 (10-20); Creatinine Clr Calc Pharmacy 85.5 ml/min; Est GFR (African American) 99.3 ml/min; Est GFR (Non-African American) 85.7 ml/min; Magnesium 1.9 mg/dl (1.7-2.4); Potassium 3.9 mmol/L (3.5-5.1)
[2022-03-17] MEDS: OXYBUTYNIN CHLORIDE XL 5 MG TABCR PO SCH (07:19)
[2022-03-17] MEDS: DOXYCYCLINE HYCLATE 100 MG CAP PO SCH ×2 (07:19→21:17)
[2022-03-17] MEDS: GABAPENTIN 100 MG CAP PO SCH ×3 (07:20→21:18)
[2022-03-17] MEDS: GABAPENTIN 400 MG CAP PO SCH ×3 (07:21→21:19)
[2022-03-17] MEDS: CIPROFLOXACIN / D5W 400 MG/200 ML BAG IV SCH ×2 (07:21→21:20)
[2022-03-17] MEDS: CLOBETASOL 0.025% SCH ×2 (07:21→16:46)
[2022-03-17] MEDS: oxyCODONE HCL IR 5 MG TAB (IMMEDIATE RELEASE) PO PRN ×2 (07:35→18:23)
--- NOTE | 2022-03-17 08:56 | Hospitalist Progress Note ---
Date of Service March 17, 2022 Assessment & Plan (1) Hematuria: (2) Dilation of biliary tract: Plan: This is a 71-year-old female who presents ambulatory dysfunction and hematuria. 1. Ambulatory dysfunction, mostly from proximal tibial fracture: The patient is placed in knee immobilizer. Orthopedics consulted - nonweightbearing on LLE. Immobilizer only for comfort. Follow w/ Dr. Ventura as outpt. No surg. intervention. PT/OT - pending 2. Hematuria going on for the last few days: Hemoglobin is stable at 12.5. Secondary to urinary tract infection. CAT scan is showing pyelitis and cystitis. The patient is allergic to penicillins. Given Po Cipro in er. Will continue with iv cipro. Ucultx - posit. for Gram negat. bacili Gentle fluids. Follow H and H. Urology consulted - cont. treatment for UTI. We will hold the aspirin for now, plan to resume tmrw. Hematuria already seems much improved. 3. Biliary and pancreatic ductal dilatation: GI consulted for further recommendations - plan for outpt EGD/EUS. 4. Bilateral iliac chain lymph nodes, prominent bilateral iliac lymph nodes: Follow up for repeat CAT scan in 6 months. 5. Chronic osteoarthritis of the knees: Continue her home pain medications. 6. History of hypothyroidism: On Synthroid. We will follow the thyroid profile. 7. Depression: On duloxetine. 8. Hyperlipidemia: On statin. DVT prophylaxis: Sequential compression devices for now. DISPOSITION:med tele. PT/OT prior to discharge. Code: full code. Admission and Anticipated Discharge Date Admission Date: March 16, 2022 Subjective Pt seen in follow up of hematuria, UTI, tib fx Currently laying in bed in NAD Denies any fever, chills, chest pain, shortness of breath Reports dysuria and Left LE pain Review of Systems Review of Systems: All systems reviewed & are unremarkable except as noted in Subjective Physical Exam Physical Exam: GENERAL: The patient is of moderate build, not in acute distress. HEENT: Pupils equal, round and reactive to light. Oral mucosa moist. NECK: No JVD, no neck masses. CARDIOVASCULAR: S1 and S2 heard. Regular rate and rhythm. No murmur, no gallop. RESPIRATORY: Normal AP diameter. No accessory muscle use. No wheezing, no crackles. ABDOMEN: Soft, bowel sounds present, nontender, no distention. NEURO:awake and alert, no facial asymmetry, speech fluent, answering approp riately, moves extremities EXTREMITIES: Chronic lower extremity skin changes. No obvious erythema seen. Chronic edema seen. Results & Data Results & Data ([facility]) Vital Signs (Past 12 Hours) Vital Signs Temp Pulse Pulse Resp BP Pulse Ox Pulse Ox 03/17/22 07:59 36.7 C 69 18 123/68 94 03/17/22 07:08 68 03/17/22 03:35 36.7 C 73 16 150/67 H 92 03/16/22 23:59 59 L 03/17/22 01:01 03/17/22 01:01 36.4 C L 62 18 160/74 H 97 03/17/22 01:01 97 03/16/22 23:00 75 16 162/92 H 97 03/16/22 21:00 70 19 98 O2 Del Method O2 Del Method 03/17/22 07:59 Room Air 03/17/22 07:08 03/17/22 03:35 Room Air 03/16/22 23:59 03/17/22 01:01 Room Air 03/17/22 01:01 Room Air 03/17/22 01:01 Room Air 03/16/22 23:00 Room Air 03/16/22 21:00 Room Air Laboratory Results 03/17/22 03/17/22 03/17/22 Range/Units 05:50 05:50 05:50 WBC 5.03 (4.8-10.8) K/ul RBC 3.65 L (3.93-5.22) M/uL Hgb 11.7 L (12.0-16.0) g/dl Hct 34.6 (34.1-44.9) % MCV 94.8 (80.0-100.0) fL MCH 32.1 (25.0-34.0) pg MCHC 33.8 (32.0-36.0) g/dL RDW Std Deviation 45.2 (36.4-46.3) fL RDW Coeff of Nakul 13.1 (11.5-14.5) % Plt Count 242 (130-400) K/uL MPV 8.8 L (9.4-12.3) fL Immature Gran % (Auto) 0.2 % Neut % (Auto) 48.5 % Lymph % (Auto) 35.6 % [place] % (Auto) 11.7 % Eos % (Auto) 3.6 % Baso % (Auto) 0.4 % Neut # (Auto) 2.44 (1.4-6.5) K/uL Lymph # (Auto) 1.79 (1.2-3.4) K/uL [place] # (Auto) 0.59 (0.24-0.82) K/uL Eos # (Auto) 0.18 (0-0.50) K/uL Baso # (Auto) 0.02 (0-0.2) K/uL Immature Gran # (Auto) 0.01 (0.00-0.02) K/uL PT (9.0-12.0) Seconds INR (0.9-1.1) APTT (21.0-31.0) Seconds PTT Ratio Sodium 139 (136-145) mmol/L Potassium 3.9 (3.5-5.1) mmol/L Chloride 104 (98-107) mmol/L Carbon Dioxide 30 (21-32) mmol/L Anion Gap 5 (3-11) BUN 16 (6-23) mg/dl Creatinine 0.71 (0.6-1.2) mg/dl Est Cr Clr Drug Dosing 85.5 Est GFR ( Amer) 99.3 ml/min Est GFR (Non-Af Amer) 85.7 ml/min BUN/Creatinine Ratio 22.5 H (10-20) Glucose 88 (70-99(Fasting)) mg/dl Calcium 9.0 (8.5-10.1) mg/dl Magnesium 1.9 (1.7-2.4) mg/dl Total Bilirubin (0.2-1.0) mg/dl AST (13-39) U/L ALT (7-52) U/L Alkaline Phosphatase (34-104) U/L Total Protein (6.0-8.3) gm/dl Albumin (3.4-5.0) gm/dl Globulin (2.5-4.0) gm/dl Albumin/Globulin Ratio (0.9-2) TSH 2.119 (0.300-4.500) uIu/ml Urine Color Urine Appearance (Clear) Urine pH (4.5-7.5) Ur Specific [place] (1.000-1.030) Urine Protein (Negative) Urine Glucose (UA) (Negative) Urine Ketones (Negative) Urine Blood (Negative) Urine Nitrite (Negative) Urine Bilirubin (Negative) Urine Urobilinogen (Negative) Ur Leukocyte Esterase (Negative) Urine WBC (Auto) (0-5) /hpf Urine RBC (Auto) (0-4) /hpf U Hyaline Cast (Auto) (0-5) /lpf U Epithel Cells (Auto) (0-5) /lpf Urine Bacteria (Auto) (Negative) SARS-CoV-2, RNA, NAAT (NEGATIVE) 03/16/22 03/16/22 03/16/22 Range/Units Unknown 20:50 17:00 WBC (4.8-10.8) K/ul RBC (3.93-5.22) M/uL Hgb (12.0-16.0) g/dl Hct (34.1-44.9) % MCV (80.0-100.0) fL MCH (25.0-34.0) pg MCHC (32.0-36.0) g/dL RDW Std Deviation (36.4-46.3) fL RDW Coeff of Nakul (11.5-14.5) % Plt Count (130-400) K/uL MPV (9.4-12.3) fL Immature Gran % (Auto) % Neut % (Auto) % Lymph % (Auto) % [place] % (Auto) % Eos % (Auto) % Baso % (Auto) % Neut # (Auto) (1.4-6.5) K/uL Lymph # (Auto) (1.2-3.4) K/uL [place] # (Auto) (0.24-0.82) K/uL Eos # (Auto) (0-0.50) K/uL Baso # (Auto) (0-0.2) K/uL Immature Gran # (Auto) (0.00-0.02) K/uL PT (9.0-12.0) Seconds INR (0.9-1.1) APTT (21.0-31.0) Seconds PTT Ratio Sodium 138 (136-145) mmol/L Potassium 4.3 (3.5-5.1) mmol/L Chloride 102 (98-107) mmol/L Carbon Dioxide 29 (21-32) mmol/L Anion Gap 7 (3-11) BUN 23 (6-23) mg/dl Creatinine 0.77 (0.6-1.2) mg/dl Est Cr Clr Drug Dosing Not Reportable Est GFR ( Amer) 90.0 ml/min Est GFR (Non-Af Amer) 77.7 ml/min BUN/Creatinine Ratio 29.9 H (10-20) Glucose 92 (70-99(Fasting)) mg/dl Calcium 9.2 (8.5-10.1) mg/dl Magnesium (1.7-2.4) mg/dl Total Bilirubin 0.6 (0.2-1.0) mg/dl AST 52 H (13-39) U/L ALT 49 (7-52) U/L Alkaline Phosphatase 259 H (34-104) U/L Total Protein 7.3 (6.0-8.3) gm/dl Albumin 3.8 (3.4-5.0) gm/dl Globulin 3.5 (2.5-4.0) gm/dl Albumin/Globulin Ratio 1.1 (0.9-2) TSH (0.300-4.500) uIu/ml Urine Color Red Urine Appearance Turbid A (Clear) Urine pH 6.0 (4.5-7.5) Ur Specific [place] 1.023 (1.000-1.030) Urine Protein 3+ H (Negative) Urine Glucose (UA) Negative (Negative) Urine Ketones Negative (Negative) Urine Blood 3+ H (Negative) Urine Nitrite Positive A (Negative) Urine Bilirubin 1+ H (Negative) Urine Urobilinogen Negative (Negative) Ur Leukocyte Esterase 2+ H (Negative) Urine WBC (Auto) >30 H (0-5) /hpf Urine RBC (Auto) >30 H (0-4) /hpf U Hyaline Cast (Auto) 1-5 (0-5) /lpf U Epithel Cells (Auto) 5-10 H (0-5) /lpf Urine Bacteria (Auto) Negative (Negative) SARS-CoV-2, RNA, NAAT NEGATIVE (NEGATIVE) 03/16/22 03/16/22 Range/Units 17:00 17:00 WBC 4.36 L (4.8-10.8) K/ul RBC 3.87 L (3.93-5.22) M/uL Hgb 12.5 (12.0-16.0) g/dl Hct 38.2 (34.1-44.9) % MCV 98.7 (80.0-100.0) fL MCH 32.3 (25.0-34.0) pg MCHC 32.7 (32.0-36.0) g/dL RDW Std Deviation 49.0 H (36.4-46.3) fL RDW Coeff of Nakul 13.4 (11.5-14.5) % Plt Count 260 (130-400) K/uL MPV 8.8 L (9.4-12.3) fL Immature Gran % (Auto) 0.2 % Neut % (Auto) 59.9 % Lymph % (Auto) 25.2 % [place] % (Auto) 10.3 % Eos % (Auto) 3.7 % Baso % (Auto) 0.7 % Neut # (Auto) 2.61 (1.4-6.5) K/uL Lymph # (Auto) 1.10 L (1.2-3.4) K/uL [place] # (Auto) 0.45 (0.24-0.82) K/uL Eos # (Auto) 0.16 (0-0.50) K/uL Baso # (Auto) 0.03 (0-0.2) K/uL Immature Gran # (Auto) 0.01 (0.00-0.02) K/uL PT 11.4 (9.0-12.0) Seconds INR 1.1 (0.9-1.1) APTT 27.7 (21.0-31.0) Seconds PTT Ratio 1.0 Sodium (136-145) mmol/L Potassium (3.5-5.1) mmol/L Chloride (98-107) mmol/L Carbon Dioxide (21-32) mmol/L Anion Gap (3-11) BUN (6-23) mg/dl Creatinine (0.6-1.2) mg/dl Est Cr Clr Drug Dosing Est GFR ( Amer) ml/min Est GFR (Non-Af Amer) ml/min BUN/Creatinine Ratio (10-20) Glucose (70-99(Fasting)) mg/dl Calcium (8.5-10.1) mg/dl Magnesium (1.7-2.4) mg/dl Total Bilirubin (0.2-1.0) mg/dl AST (13-39) U/L ALT (7-52) U/L Alkaline Phosphatase (34-104) U/L Total Protein (6.0-8.3) gm/dl Albumin (3.4-5.0) gm/dl Globulin (2.5-4.0) gm/dl Albumin/Globulin Ratio (0.9-2) TSH (0.300-4.500) uIu/ml Urine Color Urine Appearance (Clear) Urine pH (4.5-7.5) Ur Specific [place] (1.000-1.030) Urine Protein (Negative) Urine Glucose (UA) (Negative) Urine Ketones (Negative) Urine Blood (Negative) Urine Nitrite (Negative) Urine Bilirubin (Negative) Urine Urobilinogen (Negative) Ur Leukocyte Esterase (Negative) Urine WBC (Auto) (0-5) /hpf Urine RBC (Auto) (0-4) /hpf U Hyaline Cast (Auto) (0-5) /lpf U Epithel Cells (Auto) (0-5) /lpf Urine Bacteria (Auto) (Negative) SARS-CoV-2, RNA, NAAT (NEGATIVE) Medications Administered Current Inpatient Medications Acetaminophen (Acetaminophen 325 Mg Tab) 650 mg PO Q4H PRN PRN Reason: Pain or Fever Stop: 04/15/22 23:52 Albuterol (Albuterol Hfa 8 Gm Inhaler) 2 puffs INH Q4 PRN PRN Reason: Wheezing Stop: 04/15/22 23:52 Atorvastatin Calcium (Atorvastatin 40 Mg Tab) 40 mg PO QPM JOSE Stop: 04/16/22 20:59 Doxycycline Hyclate (Doxycycline Hyclate 100 Mg Cap) 100 mg PO AMHS JOSE Stop: 03/18/22 08:59 Last Admin: 03/17/22 07:19 Dose: 100 mg Duloxetine HCl (Duloxetine Hcl 30 Mg Cap) 30 mg PO QPM JOSE Stop: 04/16/22 20:59 Duloxetine HCl (Duloxetine Hcl 60 Mg Cap) 60 mg PO QPM JOSE Stop: 04/16/22 20:59 Furosemide (Furosemide 80 Mg Tab) 80 mg PO QAM PRN PRN Reason: Edema Stop: 04/15/22 23:52 Gabapentin (Gabapentin 100 Mg Cap) 100 mg PO TID [facility] Stop: 04/16/22 08:59 Last Admin: 03/17/22 07:20 Dose: 100 mg Gabapentin (Gabapentin 400 Mg Cap) 400 mg PO TID [facility] Stop: 04/16/22 08:59 Last Admin: 03/17/22 07:21 Dose: 400 mg Hydromorphone HCl (Hydromorphone Inj 0.5 Mg/0.5 Ml Syr) 0.5 mg IV Q3H PRN PRN Reason: Severe Pain Stop: 03/30/22 23:52 Last Admin: 03/17/22 05:50 Dose: 0.5 mg Ciprofloxacin (Cipro / D5w) 400 mg in 200 mls @ 100 mls/hr IV Q12H [facility]; Pro tocol Stop: 03/27/22 09:29 Last Admin: 03/17/22 07:21 Dose: 100 mls/hr Sodium Chloride (Nss 1000ml) 1,000 mls @ 80 mls/hr IV .[id number] [facility] Stop: 04/15/22 23:52 Last Admin: 03/17/22 00:59 Dose: 80 mls/hr Levothyroxine Sodium (Levothyroxine Sodium 125 Mcg Tablet) 125 mcg PO DAILYBB [facility] Stop: 04/16/22 06:29 Last Admin: 03/17/22 05:50 Dose: 125 mcg Miscellaneous (Clobetasol 0.025 % Cream - Order Awaiting Action) 1 each N/A QS [facility] Stop: 04/16/22 07:59 Last Admin: 03/17/22 07:21 Dose: Not Given Nitroglycerin (Nitroglycerin Sl 0.4 Mg/Tab Tab) 0.4 mg SL UD PRN PRN Reason: Chest Pain Stop: 04/15/22 23:52 Oxybutynin Chloride (Oxybutynin Chloride Xl 5 Mg Tabcr) 10 mg PO QAM [facility] Stop: 04/16/22 08:59 Last Admin: 03/17/22 07:19 Dose: 10 mg Oxycodone HCl (Oxycodone Hcl 15 Mg Tabcr (Oxycontin)) 15 mg PO AMHS [facility] Stop: 03/31/22 08:59 Oxycodone HCl (Oxycodone Hcl Ir 5 Mg Tab (Immediate Release)) 5 mg PO Q8 PRN PRN Reason: Pain, Severe Stop: 03/30/22 23:52 Last Admin: 03/17/22 07:35 Dose: 5 mg Polyethylene Glycol (Polyethylene (Miralax) 17 Gm Pack) 17 gm PO DAILY PRN PRN Reason: Constipation Stop: 04/15/22 23:52 Ropinirole HCl (Ropinirole Hcl 1 Mg Tablet) 1 mg PO HS JOSE Stop: 04/16/22 20:59
[2022-03-17] MEDS: oxyCODONE HCL 15 MG TABCR (OxyCONTIN) PO SCH ×2 (08:57→21:31)
--- NOTE | 2022-03-17 09:03 | Urology Consultation ---
Date of Consultation March 17, 2022 Assessment & Plan (1) Gross hematuria: (2) UTI (urinary tract infection): Plan 71yo F admitted with gross hematuria, left proximal tibia fracture. - Urology consulted for hematuria. - Afebrile and hemodynamically stable. - Labs reviewed-no leukocytosis, normal renal function, hemoglobin 11.7. - External catheter in place, draining clear yellow urine on exam. Continue to monitor. Bladder scan prn. - Hematuria was likely secondary to UTI. - No intervention warranted at this time. - Continue supportive care and antibiotic therapy, follow culture. - Will arrange outpatient follow-up with our service for continued care. - Urology will sign-off. Please contact us any further questions, concerns, or changes in patient status. History of Present Illness Reason for Consultation: hematuria Attending Physician: Surendra Lassiter MD History of Present Illness 71-year-old female with past medical history significant for hyperlipidemia, acquired hypothyroidism, osteoarthritis of knee, depression who presented with ambulatory dysfunction, left leg pain, hematuria and admitted with proximal tibial fracture and gross hematuria. On arrival she was afebrile and hemodynamically stable. No leukocytosis and normal renal function. Urinalysis with 3+ blood, positive nitrite, 2+ LE, > 30 WBC, >30 RBC, negative bacteria. A urine culture is pending. CT abdomen pelvis - 1. Horseshoe kidney. Mild urothelial thickening of the collecting system left renal moiety and the left ureter suggests pyelitis. Bladder wall thickening with adjacent stranding suggests cystitis. No renal abscess. 2. Biliary and pancreatic ductal dilatation to the level of the ampulla. The jaja ology for this ductal dilatation is not clear on this exam and nonemergent GI consultation is recommended for consideration for ERCP to exclude an ampullary lesion. 3. Distended gallbladder without adjacent stranding. 4. Hiatal hernia with partially intrathoracic stomach. 5. Prominent bilateral iliac chain lymph nodes which may contain calcifications. These are likely benign however a follow-up CT of the abdomen and pelvis in 6 months to ensure stability is recommended. Patient examined at bedside this AM. Awake, resting bed on arrival. No acute distress. External urinary catheter in place, draining clear yellow urine. Patient denies abdominal, flank, suprapubic pain. No fevers or chills. No nausea or vomiting. States she is mostly incontinent at baseline due to mobility issues. Wears a depends at home. Denies previous episodes of hematuria. Reports a prior history of kidney stones, >15 years ago. Denies additional pertinent history. Allergies Allergy/AdvReac Type Severity Reaction Status Date / Time Penicillins Allergy Mild Swelling Verified 03/16/22 19:54 of Lip/Tongue/Throat silver sulfadiazine Allergy Mild Rash Verified 09/01/21 08:56 [From Silvadene] Sulfa (Sulfonamide Allergy skin Verified 03/16/22 19:55 Antibiotics) irritation per [facility] Home Medications Medication Instructions Recorded Confirmed Type albuterol sulfate 90 mcg/actuation 2 puff inhalation Q4 PRN Wheezing 08/24/18 1 05/16/21 History aerosol inhaler atorvastatin 40 mg tablet 40 mg PO QPM 08/24/18 03/16/22 History levothyroxine 125 mcg tablet 125 mcg PO DAILYBB 08/24/18 03/16/22 History 3-in-1 Commode #1 ea 12/09/20 08/29/21 Rx Wheeled Walker #1 ea 12/09/20 08/29/21 Rx celecoxib 200 mg capsule (Celebrex) 200 mg PO AMHS 01/08/21 03/16/22 History clobetasol 0.025 % topical cream 1 applic topical BID PRN Rash 01/08/21 03/16/22 History duloxetine 60 mg capsule,delayed 60 mg PO QPM 01/08/21 03/16/22 History release gabapentin 400 mg capsule 400 mg PO TID 01/08/21 03/16/22 History oxycodone 15 mg tablet,crush 15 mg PO AMHS 01/08/21 03/16/22 History resistant,extended release 12 hr (OxyContin) ropinirole 1 mg tablet 1 mg PO HS 01/08/21 03/16/22 History acetaminophen 650 mg 650 mg PO QPM 07/03/21 03/16/22 History tablet,extended release (Tylenol Arthritis Pain) duloxetine 30 mg capsule,delayed 30 mg PO QPM 07/03/21 03/16/22 History release furosemide 40 mg tablet (Lasix) 80 mg PO QAM PRN Edema 07/03/21 03/16/22 History gabapentin 100 mg capsule 100 mg PO TID 07/03/21 03/16/22 History aspirin 81 mg tablet,delayed 81 mg PO AMHS 08/29/21 03/16/22 History release doxycycline hyclate 100 mg capsule 100 mg PO AMHS 08/29/21 03/16/22 History oxybutynin chloride 10 mg 10 mg PO QAM 03/16/22 03/16/22 History tablet,extended release 24 hr oxycodone 5 mg tablet 5 mg PO Q8 PRN Pain, Severe 03/16/22 03/16/22 History Patient History Medical History (Updated 03/17/22 @ 09:21 by PAULINO Jones) Anxiety Depression Graves disease S/p radioactive iodine > currently on levothyroxine History of COVID-21 Jun 2021, very mild, didn't take actual test, had been exposed to grandson who had covid. Pt then had symptoms. No further issues Hx of bronchitis Inhaler was prescribed for this, no asthma or copd dx Hx of deep venous thrombosis RLE (~1.5 years ago), Eliquis x 3 months after event, no definitive etiology, no issues since Hyperlipidemia Kidney stones Hx Morbid obesity with BMI of 40.0-44.9, adult Neuropathy Restless leg syndrome Staphylococcus infection Present in left ankle > on doxycycline at present > per pt, Dr. Ventura is aware, will assess DOS to make sure ok to proceed with surgery on 09/01/21 UTI (urinary tract infection) Surgical History History of total right knee replacement Hx of colonoscopy Hx of lithotripsy [place] teeth extracted Family History Other No family history of adverse response to anesthesia Social History Smoking Status: Never smoker Second Hand Exposure: No; Do You Dip or Chew Tobacco: No; Hx Alcohol Use: No Hx Substance Use: No Preferred Language: Tajik Communication Ability: Effective Gum Machine Operator Required: No Beliefs That Will Affect Care: None marital status: Current Living Situation: Spouse How many Children do You have: 2 Other Information That Helps Us Care for You: No Feels Safe at Home: Yes Safety Concerns: Feels Safe At This Time Assistive Devices: Cane and Walker Review of Systems Review of Systems: All systems reviewed & are unremarkable except as noted in HPI & below Physical Exam Constitutional: well developed and well nourished; no acute distress Neck: normal visual inspection Respiratory: normal respiratory effort; no respiratory distress and no labored breathing Musculoskeletal: Left leg immobilizer Skin: No visible rashes or lesions to exposed skin areas Neurologic: moves all extremities and awake Psychiatric: A+Ox3, euthymic affect Genitourinary: External catheter intact, draining clear yellow urine Results & Data ([facility]) Vital Signs (Past 12 Hours) Vital Signs Temp Pulse Pulse Resp BP Pulse Ox Pulse Ox 03/17/22 07:59 36.7 C 69 18 123/68 94 03/17/22 07:08 68 03/17/22 03:35 36.7 C 73 16 150/67 H 92 03/16/22 23:59 59 L 03/17/22 01:01 03/17/22 01:01 36.4 C L 62 18 160/74 H 97 03/17/22 01:01 97 03/16/22 23:00 75 16 162/92 H 97 03/16/22 21:00 70 19 98 O2 Del Method O2 Del Method 03/17/22 07:59 Room Air 03/17/22 07:08 03/17/22 03:35 Room Air 03/16/22 23:59 03/17/22 01:01 Room Air 03/17/22 01:01 Room Air 03/17/22 01:01 Room Air 03/16/22 23:00 Room Air 03/16/22 21:00 Room Air PG Care Time/CCT Total # of Minutes Spent Total Time Spent with Patient: Total time spent is greater than 50% in coordination of care (as documented) at patient's floor/unit and/or counseling patient: Coding Level of Care Code 08599 Initial Inpt Care Lvl 2 Diagnoses Gross hematuria R31.0 UTI (urinary tract infection) N39.0
--- NOTE | 2022-03-17 09:23 | Gastrointestinal Consultation ---
Date of Consultation March 17, 2022 Assessment & Plan (1) Dilation of biliary tract: 71 year old female admitted w/ gross hematuria, left proximal tibia fracture GI asked to evaluate for incidental findings of biliary and pancreatic ductal dilation. She denies any GI signs or symptoms or weight loss. Can consider MRI ABD while admitted Otherwise, will plan for OP EGD/EUS evaluation to rule out any sinister pathology No GI contraindication to diet Thank you for allowing us to participate in the care of this patient. Please call with any acute changes, questions or concerns. Please see addendum below with additional recommendation from my supervising physician. Supervising Physician Co-Signing Physician Notes I have personally seen and examined the patient with PAULINO Jones. Her note reflects my exam and findings. I agree with her impression and plan. Agree with out patient EUS to look for sinister pathology. Renan Gamble M.D. History of Present Illness Reason for Consultation: biliary dilation Requesting Physician: Sravani Attending Physician: Surendra Lassiter MD History of Present Illness 71 year old female with history of dyslipidemia, anxiety/depression, graves d isease, RLS, UTI who presents for evaluation of hematuria and leg pain. GI was asked to evaluate for incidental finding, biliary and pancreatic ductal dilation. Pt was seen and evaluated, chart reviewed. Notes from GI standpoint feels well. Denies abd pain. No nausea, vomiting. Is hungry, appetite has been good. Denies GERD. Suggests has been moving her bowels okay, some loose stools. Denies black or bloody stools. Denies weight loss. Has been on scheduled narcotic analgesia for about 3-4 years. Denies ETOH and tobacco use CTAP 2021: . Horseshoe kidney. Mild urothelial thickening of the collecting system left renal moiety and the left ureter suggests pyelitis. Bladder wall thickening with adjacent stranding suggests cystitis. No renal abscess. Biliary and pancreatic ductal dilatation to the level of the ampulla. The etiology for this ductal dilatation is not clear on this exam and nonemergent GI consultation is recommended for consideration for ERCP to exclude an ampullary lesion. Allergies Allergy/AdvReac Type Severity Reaction Status Date / Time Penicillins Allergy Mild Swelling Verified 03/16/22 19:54 of Lip/Tongue/Throat silver sulfadiazine Allergy Mild Rash Verified 09/01/21 08:56 [From Silvadene] Sulfa (Sulfonamide Allergy skin Verified 03/16/22 19:55 Antibiotics) irritation per [facility] Home Medications Medication Instructions Recorded Confirmed Type albuterol sulfate 90 mcg/actuation 2 puff inhalation Q4 PRN Wheezing 08/24/18 03/16/22 History aerosol inhaler atorvastatin 40 mg tablet 40 mg PO QPM 08/24/18 03/16/22 History levothyroxine 125 mcg tablet 125 mcg PO DAILYBB 08/24/18 03/16/22 History 3-in-1 Commode #1 ea 12/09/20 08/29/21 Rx Wheeled Walker #1 ea 12/09/20 08/29/21 Rx celecoxib 200 mg capsule (Celebrex) 200 mg PO AMHS 01/08/21 03/16/22 History clobetasol 0.025 % topical cream 1 applic topical BID PRN Rash 01/08/21 03/16/22 History duloxetine 60 mg capsule,delayed 60 mg PO QPM 01/08/21 03/16/22 History release gabapentin 400 mg capsule 400 mg PO TID 01/08/21 03/16/22 History oxycodone 15 mg tablet,crush 15 mg PO AMHS 01/08/21 03/16/22 History resistant,extended release 12 hr (OxyContin) ropinirole 1 mg tablet 1 mg PO HS 01/08/21 03/16/22 History acetaminophen 650 mg 650 mg PO QPM 07/03/21 03/16/22 History tablet,extended release (Tylenol Arthritis Pain) duloxetine 30 mg capsule,delayed 30 mg PO QPM 07/03/21 03/16/22 History release furosemide 40 mg tablet (Lasix) 80 mg PO QAM PRN Edema 07/03/21 03/16/22 History gabapentin 100 mg capsule 100 mg PO TID 07/03/21 03/16/22 History aspirin 81 mg tablet,delayed 81 mg PO AMHS 08/29/21 03/16/22 History release doxycycline hyclate 100 mg capsule 100 mg PO AMHS 08/29/21 03/16/22 History oxybutynin chloride 10 mg 10 mg PO QAM 03/16/22 03/16/22 History tablet,extended release 24 hr oxycodone 5 mg tablet 5 mg PO Q8 PRN Pain, Severe 03/16/22 03/16/22 History Patient History Medical History (Updated 03/17/22 @ 09:21 by PAULINO Jones) Anxiety Depression Graves disease S/p radioactive iodine > currently on levothyroxine History of COVID-21 Jun 2021, very mild, didn't take actual test, had been exposed to grandson who had covid. Pt then had symptoms. No further issues Hx of bronchitis Inhaler was prescribed for this, no asthma or copd dx Hx of deep venous thrombosis RLE (~1.5 years ago), Eliquis x 3 months after event, no definitive etiology, no issues since Hyperlipidemia Kidney stones Hx Morbid obesity with BMI of 40.0-44.9, adult Neuropathy Restless leg syndrome Staphylococcus infection Present in left ankle > on doxycycline at present > per pt, Dr. 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 Beliefs That Will Affect Care: None marital status: Current Living Situation: Spouse How many Children do You have: 2 Other Information That Helps Us Care for You: No Feels Safe at Home: Yes Safety Concerns: Feels Safe At This Time Assistive Devices: Cane and Walker Review of Systems Review of Systems: All systems reviewed & are unremarkable except as noted in HPI & below Physical Exam Constitutional: WD/WN, vitals as above Respiratory: normal respiratory effort, lungs clear to auscultation Cardiovascular: Rate/Rhythm: regular rate and regular rhythm Gastrointestinal (Abdomen): normal bowel sounds, soft, nontender, no hepatosplenomegaly Skin: no rashes, warm and dry Results & Data ([place]) Vital Signs (Past 12 Hours) Vital Signs Temp Pulse Pulse Resp BP Pulse Ox Pulse Ox 03/17/22 07:59 36.7 C 69 18 123/68 94 03/17/22 07:08 68 03/17/22 03:35 36.7 C 73 16 150/67 H 92 03/16/22 23:59 59 L 03/17/22 01:01 03/17/22 01:01 36.4 C L 62 18 160/74 H 97 03/17/22 01:01 97 03/16/22 23:00 75 16 162/92 H 97 O2 Del Method O2 Del Method 03/17/22 07:59 Room Air 03/17/22 07:08 03/17/22 03:35 Room Air 03/16/22 23:59 03/17/22 01:01 Room Air 03/17/22 01:01 Room Air 03/17/22 01:01 Room Air 03/16/22 23:00 Room Air Laboratory Results 03/17/22 03/17/22 03/17/22 Range/Units 05:50 05:50 05:50 WBC 5.03 (4.8-10.8) K/ul RBC 3.65 L (3.93-5.22) M/uL Hgb 11.7 L (12.0-16.0) g/dl Hct 34.6 (34.1-44.9) % MCV 94.8 (80.0-100.0) fL MCH 32.1 (25.0-34.0) pg MCHC 33.8 (32.0-36.0) g/dL RDW Std Deviation 45.2 (36.4-46.3) fL RDW Coeff of Nakul 13.1 (11.5-14.5) % Plt Count 242 (130-400) K/uL MPV 8.8 L (9.4-12.3) fL Immature Gran % (Auto) 0.2 % Neut % (Auto) 48.5 % Lymph % (Auto) 35.6 % Sullivan % (Auto) 11.7 % Eos % (Auto) 3.6 % Baso % (Auto) 0.4 % Neut # (Auto) 2.44 (1.4-6.5) K/uL Lymph # (Auto) 1.79 (1.2-3.4) K/uL Sullivan # (Auto) 0.59 (0.24-0.82) K/uL Eos # (Auto) 0.18 (0-0.50) K/uL Baso # (Auto) 0.02 (0-0.2) K/uL Immature Gran # (Auto) 0.01 (0.00-0.02) K/uL PT (9.0-12.0) Seconds INR (0.9-1.1) APTT (21.0-31.0) Seconds PTT Ratio Sodium 139 (136-145) mmol/L Potassium 3.9 (3.5-5.1) mmol/L Chloride 104 (98-107) mmol/L Carbon Dioxide 30 (21-32) mmol/L Anion Gap 5 (3-11) BUN 16 (6-23) mg/dl Creatinine 0.71 (0.6-1.2) mg/dl Est Cr Clr Drug Dosing 85.5 Est GFR ( Amer) 99.3 ml/min Est GFR (Non-Af Amer) 85.7 ml/min BUN/Creatinine Ratio 22.5 H (10-20) Glucose 88 (70-99(Fasting)) mg/dl Calcium 9.0 (8.5-10.1) mg/dl Magnesium 1.9 (1.7-2.4) mg/dl Total Bilirubin (0.2-1.0) mg/dl AST (13-39) U/L ALT (7-52) U/L Alkaline Phosphatase (34-104) U/L Total Protein (6.0-8.3) gm/dl Albumin (3.4-5.0) gm/dl Globulin (2.5-4.0) gm/dl Albumin/Globulin Ratio (0.9-2) TSH 2.119 (0.300-4.500) uIu/ml Urine Color Urine Appearance (Clear) Urine pH (4.5-7.5) Ur Specific [place] (1.000-1.030) Urine Protein (Negative) Urine Glucose (UA) (Negative) Urine Ketones (Negative) Urine Blood (Negative) Urine Nitrite (Negative) Urine Bilirubin (Negative) Urine Urobilinogen (Negative) Ur Leukocyte Esterase (Negative) Urine WBC (Auto) (0-5) /hpf Urine RBC (Auto) (0-4) /hpf U Hyaline Cast (Auto) (0-5) /lpf U Epithel Cells (Auto) (0-5) /lpf Urine Bacteria (Auto) (Negative) SARS-CoV-2, RNA, NAAT (NEGATIVE) 03/16/22 03/16/22 03/16/22 Range/Units Unknown 20:50 17:00 WBC (4.8-10.8) K/ul RBC (3.93-5.22) M/uL Hgb (12.0-16.0) g/dl Hct (34.1-44.9) % MCV (80.0-100.0) fL MCH (25.0-34.0) pg MCHC (32.0-36.0) g/dL RDW Std Deviation (36.4-46.3) fL RDW Coeff of Nakul (11.5-14.5) % Plt Count (130-400) K/uL MPV (9.4-12.3) fL Immature Gran % (Auto) % Neut % (Auto) % Lymph % (Auto) % Sullivan % (Auto) % Eos % (Auto) % Baso % (Auto) % Neut # (Auto) (1.4-6.5) K/uL Lymph # (Auto) (1.2-3.4) K/uL Sullivan # (Auto) (0.24-0.82) K/uL Eos # (Auto) (0-0.50) K/uL Baso # (Auto) (0-0.2) K/uL Immature Gran # (Auto) (0.00-0.02) K/uL PT (9.0-12.0) Seconds INR (0.9-1.1) APTT (21.0-31.0) Seconds PTT Ratio Sodium 138 (136-145) mmol/L Potassium 4.3 (3.5-5.1) mmol/L Chloride 102 (98-107) mmol/L Carbon Dioxide 29 (21-32) mmol/L Anion Gap 7 (3-11) BUN 23 (6-23) mg/dl Creatinine 0.77 (0.6-1.2) mg/dl Est Cr Clr Drug Dosing Not Reportable Est GFR ( Amer) 90.0 ml/min Est GFR (Non-Af Amer) 77.7 ml/min BUN/Creatinine Ratio 29.9 H (10-20) Glucose 92 (70-99(Fasting)) mg/dl Calcium 9.2 (8.5-10.1) mg/dl Magnesium (1.7-2.4) mg/dl Total Bilirubin 0.6 (0.2-1.0) mg/dl AST 52 H (13-39) U/L ALT 49 (7-52) U/L Alkaline Phosphatase 259 H (34-104) U/L Total Protein 7.3 (6.0-8.3) gm/dl Albumin 3.8 (3.4-5.0) gm/dl Globulin 3.5 (2.5-4.0) gm/dl Albumin/Globulin Ratio 1.1 (0.9-2) TSH (0.300-4.500) uIu/ml Urine Color Red Urine Appearance Turbid A (Clear) Urine pH 6.0 (4.5-7.5) Ur Specific [place] 1.023 (1.000-1.030) Urine Protein 3+ H (Negative) Urine Glucose (UA) Negative (Negative) Urine Ketones Negative (Negative) Urine Blood 3+ H (Negative) Urine Nitrite Positive A (Negative) Urine Bilirubin 1+ H (Negative) Urine Urobilinogen Negative (Negative) Ur Leukocyte Esterase 2+ H (Negative) Urine WBC (Auto) >30 H (0-5) /hpf Urine RBC (Auto) >30 H (0-4) /hpf U Hyaline Cast (Auto) 1-5 (0-5) /lpf U Epithel Cells (Auto) 5-10 H (0-5) /lpf Urine Bacteria (Auto) Negative (Negative) SARS-CoV-2, RNA, NAAT NEGATIVE (NEGATIVE) 03/16/22 03/16/22 Range/Units 17:00 17:00 WBC 4.36 L (4.8-10.8) K/ul RBC 3.87 L (3.93-5.22) M/uL Hgb 12.5 (12.0-16.0) g/dl Hct 38.2 (34.1-44.9) % MCV 98.7 (80.0-100.0) fL MCH 32.3 (25.0-34.0) pg MCHC 32.7 (32.0-36.0) g/dL RDW Std Deviation 49.0 H (36.4-46.3) fL RDW Coeff of Nakul 13.4 (11.5-14.5) % Plt Count 260 (130-400) K/uL MPV 8.8 L (9.4-12.3) fL Immature Gran % (Auto) 0.2 % Neut % (Auto) 59.9 % Lymph % (Auto) 25.2 % Sullivan % (Auto) 10.3 % Eos % (Auto) 3.7 % Baso % (Auto) 0.7 % Neut # (Auto) 2.61 (1.4-6.5) K/uL Lymph # (Auto) 1.10 L (1.2-3.4) K/uL Sullivan # (Auto) 0.45 (0.24-0.82) K/uL Eos # (Auto) 0.16 (0-0.50) K/uL Baso # (Auto) 0.03 (0-0.2) K/uL Immature Gran # (Auto) 0.01 (0.00-0.02) K/uL PT 11.4 (9.0-12.0) Seconds INR 1.1 (0.9-1.1) APTT 27.7 (21.0-31.0) Seconds PTT Ratio 1.0 Sodium (136-145) mmol/L Potassium (3.5-5.1) mmol/L Chloride (98-107) mmol/L Carbon Dioxide (21-32) mmol/L Anion Gap (3-11) BUN (6-23) mg/dl Creatinine (0.6-1.2) mg/dl Est Cr Clr Drug Dosing Est GFR ( Amer) ml/min Est GFR (Non-Af Amer) ml/min BUN/Creatinine Ratio (10-20) Glucose (70-99(Fasting)) mg/dl Calcium (8.5-10.1) mg/dl Magnesium (1.7-2.4) mg/dl Total Bilirubin (0.2-1.0) mg/dl AST (13-39) U/L ALT (7-52) U/L Alkaline Phosphatase (34-104) U/L Total Protein (6.0-8.3) gm/dl Albumin (3.4-5.0) gm/dl Globulin (2.5-4.0) gm/dl Albumin/Globulin Ratio (0.9-2) TSH (0.300-4.500) uIu/ml Urine Color Urine Appearance (Clear) Urine pH (4.5-7.5) Ur Specific [place] (1.000-1.030) Urine Protein (Negative) Urine Glucose (UA) (Negative) Urine Ketones (Negative) Urine Blood (Negative) Urine Nitrite (Negative) Urine Bilirubin (Negative) Urine Urobilinogen (Negative) Ur Leukocyte Esterase (Negative) Urine WBC (Auto) (0-5) /hpf Urine RBC (Auto) (0-4) /hpf U Hyaline Cast (Auto) (0-5) /lpf U Epithel Cells (Auto) (0-5) /lpf Urine Bacteria (Auto) (Negative) SARS-CoV-2, RNA, NAAT (NEGATIVE)
[2022-03-17 11:23] LABS: Hematocrit (blood only) 34.4 % (34.1-44.9); Hemoglobin 11.5 g/dl (12.0-16.0)
[2022-03-17 17:27] LABS: Hematocrit (blood only) 35.2 % (34.1-44.9); Hemoglobin 11.8 g/dl (12.0-16.0)
[2022-03-17] MEDS: ATORVASTATIN 40 MG TAB PO SCH (21:18)
[2022-03-17] MEDS: DULoxetine HCL 60 MG CAP PO SCH (21:19)
[2022-03-17] MEDS: DULoxetine HCL 30 MG CAP PO SCH (21:19)
[2022-03-17] MEDS: rOPINIRole HCL 1 MG TABLET PO SCH (21:20)
[2022-03-18] MEDS: CLOBETASOL 0.025% SCH ×3 (00:15→15:09)
[2022-03-18] MEDS: SODIUM CHLORIDE 0.9% 1000ML 1,000 ML IV SCH (04:17)
[2022-03-18] MEDS: ACETAMINOPHEN 325 MG TAB PO PRN (05:26)
[2022-03-18] MEDS: HYDROmorphone INJ 0.5 MG/0.5 ML SYR IV PRN ×4 (05:27→20:48)
[2022-03-18] MEDS: LEVOTHYROXINE SODIUM 125 MCG TABLET PO SCH (08:03)
[2022-03-18] MEDS: oxyCODONE HCL 15 MG TABCR (OxyCONTIN) PO SCH ×2 (08:11→20:40)
[2022-03-18] MEDS: CIPROFLOXACIN / D5W 400 MG/200 ML BAG IV SCH ×2 (08:12→20:41)
[2022-03-18] MEDS: OXYBUTYNIN CHLORIDE XL 5 MG TABCR PO SCH (08:38)
[2022-03-18] MEDS: GABAPENTIN 400 MG CAP PO SCH ×3 (08:38→20:40)
[2022-03-18] MEDS: GABAPENTIN 100 MG CAP PO SCH ×3 (08:38→20:40)
[2022-03-18] MEDS: oxyCODONE HCL IR 5 MG TAB (IMMEDIATE RELEASE) PO PRN (11:13)
--- NOTE | 2022-03-18 12:33 | Hospitalist Progress Note ---
Date of Service March 18, 2022 Assessment & Plan (1) Hematuria: (2) Dilation of biliary tract: Plan: Patient is an 71-year-old female who presents with ambulatory dysfunction and hematuria. Closed fracture of left proximal tibia Ambulatory dysfunction secondary to above --Leg X ray:Status post total left knee arthroplasty. Interval development of an acute to subacute nondisplaced proximal left tibial fracture, as detailed above. Fracture may extend to the tibial component of the arthroplasty. Nonoperative management as per orthopedics Appreciate orthopedics input Nonweightbearing recommended Needs follow-up with orthopedics in 2 weeks with repeat x-rays Appreciate Orthopedics Input Fall precautions Continue knee immobilizer for comfort SNF when accepted Urinary tract infection Hematuria secondary to above Urine culture growing Proteus mirabilis Continue ciprofloxacin Appreciate urology input Advised to follow-up with urology as outpatient Hematuria resolved Biliary and pancreatic ductal dilatation: --CT ABD:Biliary and pancreatic ductal dilatation to the level of the ampulla. The etiology for this ductal dilatation is not clear on this exam and nonemergent GI consultation is recommended for consideration for ERCP to exclude an ampullary lesion. Distended gallbladder without adjacent stranding. Hiatal hernia with partially intrathoracic stomach. Prominent bilateral iliac chain lymph nodes which may contain calcifications. These are likely benign however a follow-up CT of the abdomen and pelvis in 6 months to ensure stability is recommended. -- mild elevation of alkaline phosphatase otherwise normal LFTs --Denies any abdominal pain Appreciate GI input Plan for outpatient EGD/EUS evaluation Needs follow-up with GI upon discharge Prominent bilateral iliac lymph nodes: Incidental finding on CT CT abdomen as above Needs repeat CT scan in 6 months Chronic osteoarthritis of the knees: Continue her home pain medications. Hypothyroidism: Normal TSH Continue levothyroxine Depression: On duloxetine Hyperlipidemia: On statin DVT Px: SCDs CODE STATUS Full code Disposition SNF as able Admission and Anticipated Discharge Date Admission Date: March 16, 2022 Subjective Patient is seen and examined at bedside States having left leg pain which is controlled Denies any chest pain, shortness of, dizziness, nausea, abdominal pain Hematuria resolved Denies any dysuria as well Currently not interested in rehab placement Prefers to be discharged home with home health No other complaints Review of Systems Review of Systems: All systems reviewed & are unremarkable except as noted in Subjective Physical Exam Physical Exam: Physical Exam: Vitals signs as noted above General Appearance:Obese, no apparent distress Head: normocephalic, Atraumatic Eyes: normal inspection, EOMI Neck: supple, Trachea midline Respiratory/Chest: Normal breath sounds, CTA, No accessory muscle use Cardiovascular: S1, S2, No murmur Abdomen/GI:Soft, Non tender, Bowel sounds present Extremities/Musculoskeletal:normal inspection, Left Leg in Immobilizer Neurologic/Psych:AAOX3, grossly no focal neurological deficits Skin: normal color, warm Results & Data Results & Data ([facility]) Vital Signs (Past 12 Hours) Vital Signs Temp Pulse Pulse Resp BP BP Pulse Ox 03/18/22 11:29 36.6 C 91 H 14 121/77 93 03/18/22 09:00 03/18/22 07:41 36.9 C 68 14 134/71 95 03/18/22 03:47 36.9 C 62 20 115/65 91 03/18/22 01:00 Pulse Ox O2 Del Method O2 Del Method 03/18/22 11:29 Room Air 03/18/22 09:00 Room Air 03/18/22 07:41 Room Air 03/18/22 03:47 Room Air 03/18/22 01:00 96 Room Air Laboratory Results Short CBC 03/17/22 Range/Units 16:54 Hgb 11.8 L (12.0-16.0) g/dl Hct 35.2 (34.1-44.9) %
[2022-03-18] MEDS: ATORVASTATIN 40 MG TAB PO SCH (20:40)
[2022-03-18] MEDS: DULoxetine HCL 60 MG CAP PO SCH (20:40)
[2022-03-18] MEDS: DULoxetine HCL 30 MG CAP PO SCH (20:40)
[2022-03-18] MEDS: rOPINIRole HCL 1 MG TABLET PO SCH (20:40)
[2022-03-19] MEDS: CLOBETASOL 0.025% SCH ×3 (00:12→16:03)
[2022-03-19] MEDS: LEVOTHYROXINE SODIUM 125 MCG TABLET PO SCH (05:30)
[2022-03-19] MEDS: HYDROmorphone INJ 0.5 MG/0.5 ML SYR IV PRN (06:00)
[2022-03-19] MEDS: ACETAMINOPHEN 325 MG TAB PO PRN ×2 (06:00→20:30)
[2022-03-19 06:21] LABS: Hematocrit (blood only) 36.2 % (34.1-44.9); Hemoglobin 11.9 g/dl (12.0-16.0)
[2022-03-19 06:53] LABS: Calcium 8.8 mg/dl (8.5-10.1); Creatinine Clr Calc Pharmacy 80.4 ml/min; Est GFR (African American) 92.9 ml/min; Est GFR (Non-African American) 80.2 ml/min; Potassium 3.9 mmol/L (3.5-5.1)
[2022-03-19] MEDS: oxyCODONE HCL 15 MG TABCR (OxyCONTIN) PO SCH ×2 (07:52→21:10)
[2022-03-19] MEDS: OXYBUTYNIN CHLORIDE XL 5 MG TABCR PO SCH (07:53)
[2022-03-19] MEDS: GABAPENTIN 100 MG CAP PO SCH ×3 (07:53→20:32)
[2022-03-19] MEDS: GABAPENTIN 400 MG CAP PO SCH ×3 (07:53→20:33)
[2022-03-19] MEDS: CIPROFLOXACIN / D5W 400 MG/200 ML BAG IV SCH ×2 (10:14→20:34)
--- NOTE | 2022-03-19 11:55 | Electrocardiogram Report ---
Test Reason : Blood Pressure : / mmHG Vent. Rate : 059 BPM Atrial Rate : 059 BPM P-R Int : 156 ms QRS Dur : 086 ms QT Int : 444 ms P-R-T Axes : 039 000 005 degrees QTc Int : 439 ms Sinus bradycardia Moderate voltage criteria for LVH, may be normal variant Borderline ECG When compared with ECG of 14-JAN-2021 11:44, No significant change was found Confirmed by Williams Doyle ([id number]) on 03/19/2022 11:55:44 AM Referred By: REFERRED SELF Confirmed By:Williams Doyle
[2022-03-19] MEDS: oxyCODONE HCL IR 5 MG TAB (IMMEDIATE RELEASE) PO PRN (13:47)
--- NOTE | 2022-03-19 16:47 | Hospitalist Progress Note ---
Date of Service March 19, 2022 Assessment & Plan (1) Hematuria: (2) Dilation of biliary tract: Plan: Patient is an 71-year-old female who presents with ambulatory dysfunction and hematuria. Closed fracture of left proximal tibia Ambulatory dysfunction secondary to above --Leg X ray:Status post total left knee arthroplasty. Interval development of an acute to subacute nondisplaced proximal left tibial fracture, as detailed above. Fracture may extend to the tibial component of the arthroplasty. Nonoperative management as per orthopedics Appreciate orthopedics input Nonweightbearing recommended Needs follow-up with orthopedics in 2 weeks with repeat x-rays Appreciate Orthopedics Input Fall precautions Continue knee immobilizer for comfort SNF when accepted Continue current management Urinary tract infection Hematuria secondary to above Urine culture growing Proteus mirabilis Continue ciprofloxacin Appreciate urology input Advised to follow-up with urology as outpatient Hematuria resolved Transition to p.o. Cipro as able Biliary and pancreatic ductal dilatation: --CT ABD:Biliary and pancreatic ductal dilatation to the level of the ampulla. The etiology for this ductal dilatation is not clear on this exam and none mergent GI consultation is recommended for consideration for ERCP to exclude an ampullary lesion. Distended gallbladder without adjacent stranding. Hiatal hernia with partially intrathoracic stomach. Prominent bilateral iliac chain lymph nodes which may contain calcifications. These are likely benign however a follow-up CT of the abdomen and pelvis in 6 months to ensure stability is recommended. -- mild elevation of alkaline phosphatase otherwise normal LFTs --Denies any abdominal pain Appreciate GI input Plan for outpatient EGD/EUS evaluation Needs follow-up with GI upon discharge Prominent bilateral iliac lymph nodes: Incidental finding on CT CT abdomen as above Needs repeat CT scan in 6 months Chronic osteoarthritis of the knees: Continue her home pain medications. Hypothyroidism: Normal TSH Continue levothyroxine Depression: On duloxetine Hyperlipidemia: On statin DVT Px: SCDs CODE STATUS Full code Disposition SNF when accepted Admission and Anticipated Discharge Date Admission Date: March 16, 2022 Subjective Patient is seen and examined at bedside No new complaints leg pain is controlled Denies any chest pain, shortness of, dizziness, nausea, abdominal pain Waiting for rehab placement Review of Systems Review of Systems: All systems reviewed & are unremarkable except as noted in Subjective Physical Exam Physical Exam: Physical Exam: Vitals signs as noted above General Appearance:Obese, no apparent distress Head: normocephalic, Atraumatic Eyes: normal inspection, EOMI Neck: supple, Trachea midline Respiratory/Chest: Normal breath sounds, CTA, No accessory muscle use Cardiovascular: S1, S2, No murmur Abdomen/GI:Soft, Non tender, Bowel sounds present Extremities/Musculoskeletal:normal inspection, Left Leg in Immobilizer Neurologic/Psych:AAOX3, grossly no focal neurological deficits Skin: normal color, warm Results & Data Results & Data ([facility]) Vital Signs (Past 12 Hours) Vital Signs Temp Pulse Pulse Resp BP BP Pulse Ox 03/19/22 15:00 67 03/19/22 15:53 36.7 C 53 L 21 150/70 H 94 03/19/22 07:47 03/19/22 11:24 36.9 C 83 20 130/77 92 03/19/22 07:49 36.9 C 53 L 19 151/71 H 93 03/19/22 07:35 37.1 C 56 L 18 139/60 93 03/19/22 07:00 62 O2 Del Method 03/19/22 15:00 03/19/22 15:53 Room Air 03/19/22 07:47 Room Air 03/19/22 11:24 Room Air 03/19/22 07:49 Room Air 03/19/22 07:35 Room Air 03/19/22 07:00 Laboratory Results Short CBC 03/19/22 Range/Units 05:44 Hgb 11.9 L (12.0-16.0) g/dl Hct 36.2 (34.1-44.9) % BMP 03/19/22 05:44 Sodium 138 Potassium 3.9 Chloride 103 Carbon Dioxide 30 BUN 18 Creatinine 0.75 Glucose 87 Calcium 8.8
[2022-03-19] MEDS: DULoxetine HCL 60 MG CAP PO SCH (20:32)
[2022-03-19] MEDS: DULoxetine HCL 30 MG CAP PO SCH (20:32)
[2022-03-19] MEDS: rOPINIRole HCL 1 MG TABLET PO SCH (20:32)
[2022-03-19] MEDS: ATORVASTATIN 40 MG TAB PO SCH (20:33)
[2022-03-20] MEDS: CLOBETASOL 0.025% SCH ×2 (00:37→08:11)
[2022-03-20] MEDS: HYDROmorphone INJ 0.5 MG/0.5 ML SYR IV PRN (02:26)
[2022-03-20] MEDS: LEVOTHYROXINE SODIUM 125 MCG TABLET PO SCH (06:23)
[2022-03-20] MEDS: GABAPENTIN 400 MG CAP PO SCH (08:10)
[2022-03-20] MEDS: OXYBUTYNIN CHLORIDE XL 5 MG TABCR PO SCH (08:10)
[2022-03-20] MEDS: GABAPENTIN 100 MG CAP PO SCH (08:10)
[2022-03-20] MEDS: oxyCODONE HCL 15 MG TABCR (OxyCONTIN) PO SCH (08:13)
[2022-03-20] MEDS: CIPROFLOXACIN / D5W 400 MG/200 ML BAG IV SCH (09:16)
--- NOTE | 2022-03-20 11:23 | Hospitalist Progress Note ---
Date of Service March 20, 2022 Assessment & Plan (1) Hematuria: (2) Dilation of biliary tract: Plan: Patient is an 71-year-old female who presents with ambulatory dysfunction and hematuria. Closed fracture of left proximal tibia Ambulatory dysfunction secondary to above --Leg X ray:Status post total left knee arthroplasty. Interval development of an acute to subacute nondisplaced proximal left tibial fracture, as detailed above. Fracture may extend to the tibial component of the arthroplasty. Nonoperative management as per orthopedics Appreciate orthopedics input Nonweightbearing recommended Needs follow-up with orthopedics in 2 weeks with repeat x-rays Appreciate Orthopedics Input Fall precautions Continue knee immobilizer for comfort Refused Rehab despite explaining the risks and complications Plan to discharge home with Home Health Urinary tract infection Hematuria secondary to above Urine culture growing Proteus mirabilis Continue ciprofloxacin Appreciate urology input Advised to follow-up with urology as outpatient Hematuria resolved Transition to p.o. Cipro upon discharge Biliary and pancreatic ductal dilatation: --CT ABD:Biliary and pancreatic ductal dilatation to the level of the ampulla. The etiology for this ductal dilatation is not clear on this exam and nonemergent GI consultation is recommended for consideration for ERCP to exclude an ampullary lesion. Distended gallbladder without adjacent stranding. Hiatal hernia with partially intrathoracic stomach. Prominent bilateral iliac chain lymph nodes which may contain calcifications. These are likely benign however a follow-up CT of the abdomen and pelvis in 6 months to ensure stability is recommended. -- mild elevation of alkaline phosphatase otherwise normal LFTs --Denies any abdominal pain Appreciate GI input Plan for outpatient EGD/EUS evaluation Needs follow-up with GI upon discharge Prominent bilateral iliac lymph nodes: Incidental finding on CT CT abdomen as above Needs repeat CT scan in 6 months Chronic osteoarthritis of the knees: Continue her home pain medications. Hypothyroidism: Normal TSH Continue levothyroxine Depression: On duloxetine Hyperlipidemia: On statin DVT Px: SCDs CODE STATUS Full code Disposition Home Health Admission and Anticipated Discharge Date Admission Date: March 16, 2022 Subjective Patient is seen and examined at bedside Doing well today leg pain is only with activity Had PT earlier today Denies any chest pain, shortness of, dizziness, nausea, abdominal pain Refuses Rehab and wants to be discharged home Review of Systems Review of Systems: All systems reviewed & are unremarkable except as noted in Subjective Physical Exam Physical Exam: Physical Exam: Vitals signs as noted above General Appearance:Obese, no apparent distress Head: normocephalic, Atraumatic Eyes: normal inspection, EOMI Neck: supple, Trachea midline Respiratory/Chest: Normal breath sounds, CTA, No accessory muscle use Cardiovascular: S1, S2, No murmur Abdomen/GI:Soft, Non tender, Bowel sounds present Extremities/Musculoskeletal:normal inspection, Left Leg in Immobilizer Neurologic/Psych:AAOX3, grossly no focal neurological deficits Skin: normal color, warm Results & Data Results & Data ([facility]) Vital Signs (Past 12 Hours) Vital Signs Temp Pulse Pulse Pulse Resp BP Pulse Ox 03/20/22 08:06 36.6 C 63 20 151/80 H 94 03/20/22 07:31 65 03/20/22 04:08 36.7 C 63 18 134/69 94 03/20/22 01:00 Pulse Ox O2 Del Method O2 Del Method 03/20/22 08:06 Room Air 03/20/22 07:31 03/20/22 04:08 Room Air 03/20/22 01:00 95 Room Air
--- NOTE | 2022-03-20 11:42 | Discharge Summary ---
Date of Service March 20, 2022 Admission Exam Per Admitting Provider PHYSICAL EXAMINATION: GENERAL: The patient is of moderate build, not in acute distress. VITAL SIGNS: Temperature 36.7, pulse 69, respiratory rate 17, blood pressure 165/90, oxygen 99% on room air. HEENT: Pupils equal, round and reactive to light. Oral mucosa moist. NECK: No JVD, no neck masses. CARDIOVASCULAR: S1 and S2 heard. Regular rate and rhythm. No murmur, no gallop. RESPIRATORY SYSTEM: Normal AP diameter. No accessory muscle use. No wheezing, no crackles. ABDOMEN: Soft, bowel sounds present, nontender, no distention. CENTRAL NERVOUS SYSTEM: Cranial nerves II-XII grossly intact, nonfocal. EXTREMITIES: Chronic lower extremity skin changes. No obvious erythema seen. Chronic edema seen. Principal Diagnosis Closed fracture of left proximal tibia Urinary tract infection Prominent bilateral iliac lymph nodes Biliary and pancreatic ductal dilatation Discharge Data Allergies Allergy/AdvReac Type Severity Reaction Status Date / Time Penicillins Allergy Severe Swelling Verified 03/18/22 13:10 of Lip/Tongue/Throat silver sulfadiazine Allergy Mild Rash Verified 09/01/21 08:56 [From Silvadene] Sulfa (Sulfonamide Allergy skin Verified 03/16/22 19:55 Antibiotics) irritation per [facility] Consultations 03/16/22 20:19 ED Decision to Admit Stat 03/17/22 08:00 Consult Gastroenterology Routine Consult Orthopedic Surgery Routine Consult Urology Routine Procedures Performed Laboratory Results WBC 5.03 K/ul (4.8-10.8) 03/17/22 05:50 RBC 3.65 M/uL (3.93-5.22) L 03/17/22 05:50 Hgb 11.9 g/dl (12.0-16.0) L 03/19/22 05:44 Hct 36.2 % (34.1-44.9) 03/19/22 05:44 MCV 94.8 fL (80.0-100.0) 03/17/22 05:50 MCH 32.1 pg (25.0-34.0) 03/17/22 05:50 MCHC 33.8 g/dL (32.0-36.0) 03/17/22 05:50 RDW Std Deviation 45.2 fL (36.4-46.3) 03/17/22 05:50 RDW Coeff of Nakul 13.1 % (11.5-14.5) 03/17/22 05:50 Plt Count 242 K/uL (130-400) 03/17/22 05:50 MPV 8.8 fL (9.4-12.3) L 03/17/22 05:50 Immature Gran % (Auto) 0.2 % 03/17/22 05:50 Neut % (Auto) 48.5 % 03/17/22 05:50 Lymph % (Auto) 35.6 % 03/17/22 05:50 [place] % (Auto) 11.7 % 03/17/22 05:50 Eos % (Auto) 3.6 % 03/17/22 05:50 Baso % (Auto) 0.4 % 03/17/22 05:50 Neut # (Auto) 2.44 K/uL (1.4-6.5) 03/17/22 05:50 Lymph # (Auto) 1.79 K/uL (1.2-3.4) 03/17/22 05:50 [place] # (Auto) 0.59 K/uL (0.24-0.82) 03/17/22 05:50 Eos # (Auto) 0.18 K/uL (0-0.50) 03/17/22 05:50 Baso # (Auto) 0.02 K/uL (0-0.2) 03/17/22 05:50 Immature Gran # (Auto) 0.01 K/uL (0.00-0.02) 03/17/22 05:50 PT 11.4 Seconds (9.0-12.0) 03/16/22 17:00 INR 1.1 (0.9-1.1) 03/16/22 17:00 APTT 27.7 Seconds (21.0-31.0) 03/16/22 17:00 PTT Ratio 1.0 03/16/22 17:00 Sodium 138 mmol/L (136-145) 03/19/22 05:44 Potassium 3.9 mmol/L (3.5-5.1) 03/19/22 05:44 Chloride 103 mmol/L (98-107) 03/19/22 05:44 Carbon Dioxide 30 mmol/L (21-32) 03/19/22 05:44 Anion Gap 5 (3-11) 03/19/22 05:44 BUN 18 mg/dl (6-23) 03/19/22 05:44 Creatinine 0.75 mg/dl (0.6-1.2) 03/19/22 05:44 Est Cr Clr Drug Dosing 80.4 ml/min 03/19/22 05:44 Est GFR ( Amer) 92.9 ml/min 03/19/22 05:44 Est GFR (Non-Af Amer) 80.2 ml/min 03/19/22 05:44 BUN/Creatinine Ratio 24.0 (10-20) H 03/19/22 05:44 Glucose 87 mg/dl (70-99(Fasting)) 03/19/22 05:44 Calcium 8.8 mg/dl (8.5-10.1) 03/19/22 05:44 Magnesium 1.9 mg/dl (1.7-2.4) 03/17/22 05:50 Total Bilirubin 0.6 mg/dl (0.2-1.0) 03/16/22 17:00 AST 52 U/L (13-39) H 03/16/22 17:00 ALT 49 U/L (7-52) 03/16/22 17:00 Alkaline Phosphatase 259 U/L (34-104) H 03/16/22 17:00 Total Protein 7.3 gm/dl (6.0-8.3) 03/16/22 17:00 Albumin 3.8 gm/dl (3.4-5.0) 03/16/22 17:00 Globulin 3.5 gm/dl (2.5-4.0) 03/16/22 17:00 Albumin/Globulin Ratio 1.1 (0.9-2) 03/16/22 17:00 TSH 2.119 uIu/ml (0.300-4.500) 03/17/22 05:50 Urine Color Red 03/16/22 Unknown Urine Appearance Turbid (Clear) A 03/16/22 Unknown Urine pH 6.0 (4.5-7.5) 03/16/22 Unknown Ur Specific [place] 1.023 (1.000-1.030) 03/16/22 Unknown Urine Protein 3+ (Negative) H 03/16/22 Unknown Urine Glucose (UA) Negative (Negative) 03/16/22 Unknown Urine Ketones Negative (Negative) 03/16/22 Unknown Urine Blood 3+ (Negative) H 03/16/22 Unknown Urine Nitrite Positive (Negative) A 03/16/22 Unknown Urine Bilirubin 1+ (Negative) H 03/16/22 Unknown Urine Urobilinogen Negative (Negative) 03/16/22 Unknown Ur Leukocyte Esterase 2+ (Negative) H 03/16/22 Unknown Urine WBC (Auto) >30 /hpf (0-5) H 03/16/22 Unknown Urine RBC (Auto) >30 /hpf (0-4) H 03/16/22 Unknown U Hyaline Cast (Auto) 1-5 /lpf (0-5) 03/16/22 Unknown U Epithel Cells (Auto) 5-10 /lpf (0-5) H 03/16/22 Unknown Urine Bacteria (Auto) Negative (Negative) 03/16/22 Unknown SARS-CoV-2, RNA, NAAT NEGATIVE (NEGATIVE) 03/16/22 20:50 Impressions Abdomen/Pelvis CT 03/16/22 18:01 CT OF THE ABDOMEN AND PELVIS WITH CONTRAST CLINICAL HISTORY: Hematuria. COMPARISON STUDY: None. TECHNIQUE: Following IV administration of 80 mL of Optiray, axial images of the abdomen and pelvis were obtained from the lung bases to the proximal femurs. Images were reviewed in the axial, sagittal, and coronal planes. IV contrast was administered without complication. Automated exposure control was utilized for the study. A dose lowering technique was utilized adhering to the principles of ALARA. CT DOSE: 1289.26 mGy.cm FINDINGS: A hiatal hernia with partially intrathoracic stomach is noted. The gallbladder is distended. There is no adjacent infiltration. Note is made of mild to moderate biliary ductal dilatation. There is also suspected dilatation of the pancreatic duct. There is no peripancreatic stranding. Ducts are dilated to the level of the ampulla. Spleen, adrenal glands are unremarkable. A horseshoe kidney is noted. Mild dilatation of the renal pelves is probably chronic. There is mild urothelial thickening of the collecting system of the left renal moiety and the left ureter. No ureteral calculi are present. Moderate bladder wall thickening is noted with adjacent stranding. No renal abscess is present. There is no evidence for a bowel obstruction. Prominent bilateral iliac chain lymph nodes are noted. Index left external iliac lymph node on image 363 of 521 measures 2.6 x 1.4 cm. These nodes may contain calcifications. IMPRESSION: 1. Horseshoe kidney. Mild urothelial thickening of the collecting system left renal moiety and the left ureter suggests pyelitis. Bladder wall thickening with adjacent stranding suggests cystitis. No renal abscess. 2. Biliary and pancreatic ductal dilatation to the level of the ampulla. The etiology for this ductal dilatation is not clear on this exam and nonemergent GI consultation is recommended for consideration for ERCP to exclude an ampullary lesion. 3. Distended gallbladder without adjacent stranding. 4. Hiatal hernia with partially intrathoracic stomach. 5. Prominent bilateral iliac chain lymph nodes which may contain calcifications. These are likely benign however a follow-up CT of the abdomen and pelvis in 6 months to ensure stability is recommended. ACT 112: Positive. There are findings on this exam that require communication between the performing entity and the patient following Patient Test Result Information Act ([place] Act 112) guidelines. Electronically signed by: Trumna Morin M.D. 03/16/2022 8:00 PM Tibia/Fibula X-Ray 03/16/22 18:01 XR tibia fibula LT 2V CLINICAL HISTORY: Left leg pain. COMPARISON: CT of the left lower leg February 22, 2022. FINDINGS: Left knee arthroplasty is noted. Left knee and lower leg soft tissue swelling is noted. There has been interval development of an acute to subacute nondisplaced proximal left tibial fracture which extends through the proximal metadiaphysis of the left tibia. Fracture extends through the medial and lateral cortices of the left tibia. Fracture may extend to the tibial component of the left knee arthroplasty. Minimal callus formation is noted. No acute left fibular fracture is present. Talar dome is intact. IMPRESSION: Status post total left knee arthroplasty. Interval development of an acute to subacute nondisplaced proximal left tibial fracture, as detailed above. Fracture may extend to the tibial component of the arthroplasty. ACT 112: Negative or not required by law. Electronically signed by: Truman Morin M.D. 03/16/2022 7:09 PM Ordered Studies 03/16/22 18:01 CT abd pelvis IV con only Stat Hospital Course (1) Hematuria: (2) Dilation of biliary tract: Patient is an 71-year-old female who presents with ambulatory dysfunction and hematuria. Closed fracture of left proximal tibia Ambulatory dysfunction secondary to above --Leg X ray:Status post total left knee arthroplasty. Interval development of an acute to subacute nondisplaced proximal left tibial fracture, as detailed above. Fracture may extend to the tibial component of the arthroplasty. Nonoperative management as per orthopedics Appreciate orthopedics input Nonweightbearing recommended Needs follow-up with orthopedics in 2 weeks with repeat x-rays Appreciate Orthopedics Input Fall precautions Continue knee immobilizer for comfort Refused Rehab despite explaining the risks and complications Plan to discharge home with Home Health Urinary tract infection Hematuria secondary to above Urine culture growing Proteus mirabilis Continue ciprofloxacin Appreciate urology input Advised to follow-up with urology as outpatient Hematuria resolved Transition to p.o. Cipro upon discharge Biliary and pancreatic ductal dilatation: --CT ABD:Biliary and pancreatic ductal dilatation to the level of the ampulla. The etiology for this ductal dilatation is not clear on this exam and nonemergent GI consultation is recommended for consideration for ERCP to exclude an ampullary lesion. Distended gallbladder without adjacent stranding. Hiatal hernia with partially intrathoracic stomach. Prominent bilateral iliac chain lymph nodes which may contain calcifications. These are likely benign however a follow-up CT of the abdomen and pelvis in 6 months to ensure stability is recommended. -- mild elevation of alkaline phosphatase otherwise normal LFTs --Denies any abdominal pain Appreciate GI input Plan for outpatient EGD/EUS evaluation Needs follow-up with GI upon discharge Prominent bilateral iliac lymph nodes: Incidental finding on CT CT abdomen as above Needs repeat CT scan in 6 months Chronic osteoarthritis of the knees: Continue her home pain medications. Hypothyroidism: Normal TSH Continue levothyroxine Depression: On duloxetine Hyperlipidemia: On statin DVT Px: SCDs CODE STATUS Full code Disposition Home Health Total Time Total Time Spent Total Time Spent (In Minutes): 54 minutes Discharge Plan Discharge Items Patient Disposition: Home - Home Health Services Reason For Visit: HEMATURIA Discharge Diagnosis: Closed fracture of left proximal tibia Urinary tract infection Prominent bilateral iliac lymph nodes Biliary and pancreatic ductal dilatation Activity: Per Instructions section Exercise/Sports: Wait until after follow-up appointment Weightbearing: Left non-weightbearing Non-emergency contact: Primary Care Provider, Surgeon and Repairer [employer] Call non-emergency contact if: you have any medication questions, your symptoms worsen, your pain is concerning for you and you have a fever Follow-up/Referrals: Jimbo Nicolas, [Primary Care Provider] - (Date & Time 03/27/2022 2:40 PM Provider Jennie La PA-C Department Family Practice [facility] ) Diet: Heart Healthy [facility] Attending Provider Instructions: Follow-up with your primary care physician on 03/27/2022 2:40 PM Follow-up with your orthopedic surgeon Dr. Jones Ventura in 2 weeks with repeat x-rays Follow-up with your boat puller Dr. Gamble for outpatient EGD/EUS for further evaluation of Biliary and pancreatic ducts as scheduled Follow-up with your urologist as needed if recurrence of blood in urine. --- You are incidentally noted to have prominent bilateral iliac lymph nodes. He will need a repeat CT scan in 6 months and follow-up with PCP for further evaluation. --- Complete the antibiotic course ciprofloxacin for urinary tract infection Seek immediate medical attention if your symptoms reoccur or worsen Please take all medications as instructed on discharge list below. Please call if you have any questions or problems. You can reach a [facility] hospitalist on duty at [facility] 24 hours a day by calling [phone] [facility] [employer] Provider Instructions: Orthopedic instructions: Nonweightbearing on the left leg for 8 to 12 weeks. Knee immobilizer is for comfort only. Can remove the knee immobilizer and bend the knee while sitting if it is more comfortable. Follow-up with Dr. Ventura in 2 weeks for repeat x-rays. Please call the office to set up an appointment for a time that works for you. Office number is [phone]. Pending Studies at Discharge: No Stand-Alone Forms: My [facility], Smoking Cessation Medications and DC Order Prescriptions: New ciprofloxacin HCl 500 mg Tablet 500 mg PO BID Qty: 9 0RF Continued gabapentin 100 mg capsule 100 mg PO TID duloxetine 30 mg capsule,delayed release(DR/EC) 30 mg PO QPM furosemide [Lasix] 40 mg tablet 80 mg PO QAM PRN (Reason: Edema) (DME) 3-in-1 Commode Misc See Rx Instructions .MEDSUPPLY Qty: 1 0RF Rx Instructions: As directed (DME) Wheeled Walker Misc See Rx Instructions .MEDSUPPLY Qty: 1 0RF Rx Instructions: As directed atorvastatin 40 mg tablet 40 mg PO QPM levothyroxine 125 mcg tablet 125 mcg PO DAILYBB Rx Instructions: 30 min prior to breakfast or other meds albuterol sulfate 90 mcg/actuation Hfa Aerosol Inhaler 2 puff INHALATION Q4 PRN (Reason: Wheezing) celecoxib [Celebrex] 200 mg Capsule 200 mg PO AMHS ropinirole 1 mg Tablet 1 mg PO HS gabapentin 400 mg Capsule 400 mg PO TID duloxetine 60 mg Capsule,Delayed Release(Dr/Ec) 60 mg PO QPM Label Comments: takes with 30mg to equal 90mg every pm oxycodone [OxyContin] 15 mg Tablet,Oral Only,Ext.Rel.12 Hr 15 mg PO AMHS clobetasol 0.025 % Cream 1 applic TOPICAL BID PRN (Reason: Rash) aspirin 81 mg Tablet,Delayed Release (Dr/Ec) 81 mg PO AMHS oxybutynin chloride 10 mg tablet extended release 24hr 10 mg PO QAM oxycodone 5 mg tablet 5 mg PO Q8 PRN (Reason: Pain, Severe) acetaminophen [Tylenol Arthritis Pain] 650 mg Tablet Extended Release 650 mg PO QPM Discontinued doxycycline hyclate 100 mg Capsule 100 mg PO AMHS Rx Instructions: take for 7 days start 03/10/22 end date 03/17/22 Discharge Orders: Discharge Order (Routine); Ordered 03/20/22 Ordered By: Romain Reynoso Admission Data Admit Date/Time: 03/16/22 21:18 Attending Provider: Romain Reynoso Admit Provider: Ming Elena Primary Care Provider: Jimbo Nicolas Other Providers: Ming Elena ; Chelsey Power ; Hari Ferris ; Belinda Veliz ; Daja Cassidy ; Keli Westbrook ; Fallon Ace ; Anoop,Kemal ; Vani Mccallum ; Martín Otoole ; Juan So ; Johnson Kurtz ; Rnean Gamble ; Nelia Ardon ; Isamar Brady ; Yamileth Mitchell ; Isa Mojica ; Marcie Mckeon ; Luke Garcia ; Chauncey Carlton ; Latasha Velázquez ; Noe Rayo Jr ; Jones Ventura ; Celestino Montero. ; Alireza Hussein ; Braxton Hernandez ; Mariana Fountain ; Daron Knott ; Carolynn Sheriff ; Jael Gruber ; Blake Obrien ; Turner Majano ; Antonella Dixon. ; Tono Castro ; Luis M Sinclair ; Sandy Almaraz [place] ; Pauly Roberts [facility]
[2022-03-20] MEDS: oxyCODONE HCL IR 5 MG TAB (IMMEDIATE RELEASE) PO PRN (13:45)
[2022-03-20] MEDS ORDERED: CIPROFLOXACIN 500 MG TAB PO SCH (21:00)
== END 2022-03-20 14:54 | disposition home or self-care (01) ==
LOC: ED 16:09 → SUATTDRO 21:18 → INTOOBSV 21:18 → 2W 21:18